=== PATIENT | male | born 1935 | race Caucasian/White ===

== ENCOUNTER 2018-04-17 11:05 | Day surgery (SDC) | payer MEDICARE ==
[2018-04-17] MEDS ORDERED: Buffered Lidocaine 0.9% SYRIN* 5 ML/SYR SYRINGE INTRADERM ONE (11:13)
[2018-04-17] MEDS ORDERED: Neomycin/Polymy/Dex OPHTH.OIN* 3.5 GM ONE (12:24)
[2018-04-17] MEDS ORDERED: Tetracaine 0.5% OPTH.SOL 4 ML* 1 DROP BTL ONE (12:24)
[2018-04-17] MEDS ORDERED: Cyclopentolate 1% OPTH.SOL* 2 ML BTL ONE (12:24)
[2018-04-17] MEDS ORDERED: Lidocaine 1%* 5 ML VIAL ONE (12:24)
[2018-04-17] MEDS ORDERED: Phenylephrine 2.5% OPTH.SOL* 2 ML BTL ONE (12:24)
[2018-04-17] MEDS ORDERED: Ketorolac 0.5% OPHTH (NF) 0.5 % 5 ML BTL ONE (12:24)
[2018-04-17] MEDS ORDERED: Tropicamide 1% OPTH.SOL* BTL ONE (12:24)
[2018-04-17] MEDS ORDERED: Midazolam* 1 MG/ML 5 ML VIAL (5 MG) ONE (13:07)
[2018-04-17 14:34] VITALS: BP 132/69
[2018-04-18] MEDS ORDERED: Acetaminophen TAB* 325 MG PO PRN (05:00)
--- NOTE | 2018-04-18 10:01 | OP ---
DATE OF OPERATION: 04/17/18 [facility] DATE OF : 37 SURGEON: Dr. Marc Figueredo. TETRYL BOILING TUB OPERATOR: None. ANESTHESIA: Topical with intravenous sedation. PRE-OP DIAGNOSIS: Cataract, right eye. POST-OP DIAGNOSIS: Cataract, right eye. OPERATIVE PROCEDURE: Phacoemulsification and cataract extraction with posterior chamber intraocular lens implant, right eye. COMPLICATIONS: None. BLOOD LOSS: None. DESCRIPTION OF PROCEDURE: The patient was brought to the operating room and received a small amount of intravenous sedation. A drop of Tetracaine was placed in the right eye. The patient was prepped and draped in the usual sterile fashion for ophthalmic surgery and attention was directed to the right eye where a speculum was placed. A paracentesis was created at the 11 o'clock position and 0.1 cc of 1 percent preservative-free Lidocaine was injected into the anterior chamber followed by DisCoVisc. The eye was digitally stabilized while a 2.75 mm keratome was used to create a triplanar clear corneal incision at the 9 o'clock position. A continuous curvilinear capsulorrhexis was created with a cystotome and Utrata forceps. BSS on a cannula was used to hydrodissect the lens from the capsule. Phacoemulsification was performed in a divide-and- conquer technique to create four fragments which were removed. Residual cortical material was removed with irrigation and aspiration. DisCoVisc was used to inflate the capsular bag and an SN60AT AU00T0 21.5 diopter lens was folded and inserted into the capsular bag. DisCoVisc was removed using irrigation and aspiration. BSS on a cannula was used to hydrate the corneal stroma and seal the wound. At the end of the case the pupil was round and the lens was centered. The eye was of normal pressure and the wound was water tight. The speculum was removed and topical Maxitrol ointment was placed on the surface of the eye. The eye was closed, patched and shielded and the patient was sent to the recovery room in stable condition with post operative instructions and follow-up appointment given. [id number]/[facility] #: [id number] MTDD
== END 2018-04-17 14:51 | disposition home or self-care (01) ==
LOC: OREAST 11:05
PROVIDERS: ATTEND Ophthalmology
DX: H25.041 Posterior subcapsular polar age-related cataract, right eye (principal); E78.5 Hyperlipidemia, unspecified; Z87.891 Personal history of nicotine dependence; Z86.711 Personal history of pulmonary embolism; E11.9 Type 2 diabetes mellitus without complications; K21.9 Gastro-esophageal reflux disease without esophagitis
CPT/HCPCS: A9270-GY; J2250; V2632

== ENCOUNTER 2018-04-24 08:29 | Day surgery (SDC) | payer MEDICARE ==
[~2018-04-24 08:29] MED LIST: Phenylephr/Ketorolac 1%/0.3% OPH DROP BTL LEFT EYE SCH
[2018-04-24] MEDS ORDERED: fentaNYL* 50 MCG/ML 2 ML VIAL (100 MCG VIAL) ONE (09:13)
[2018-04-24 10:18] VITALS: BP 101/62
--- NOTE | 2018-04-24 13:03 | OP ---
DATE OF OPERATION: 04/24/18 - [facility] DATE OF : 36 SURGEON: Marc Figueredo MD ESTATE TAX EXAMINER: None. ANESTHESIA: Topical with intravenous sedation. PRE-OP DIAGNOSIS: Cataract and small pupil, left eye. POST-OP DIAGNOSIS: Cataract and small pupil, left eye. OPERATIVE PROCEDURE: Phacoemulsification and cataract extraction with posterior chamber intraocular lens implant, left eye. COMPLICATIONS: None. BLOOD LOSS: None. DESCRIPTION OF PROCEDURE: The patient was brought to the operating room and given intravenous sedation. A drop of Tetracaine was placed in his left eye. The patient was prepped and draped in the usual sterile fashion for ophthalmic surgery and attention was directed to the left eye where a speculum was placed. It was noted that the pupil measured approximately 4 mm despite preoperative dilating drops. A paracentesis was created at the 5 o'clock position and 0.1 cc of 1% preservative-free lidocaine was introduced into the anterior chamber followed by DisCoVisc. A triplanar clear corneal incision was created at the 3 o'clock position using a 2.75 mm keratome while the eye was digitally stabilized. Despite DisCoVisc in the eye, the pupil did not dilate significantly. A continuous curvilinear capsulorrhexis measuring approximately 5 mm was created with a cystotome and Utrata forceps. Omidria was added to the irrigating solution. Phacoemulsification was performed in a opvzyn-hzv-gaipswm technique to create 4 fragments which were removed. It was noted that the pupil became smaller during the surgery and visibility decreased. Thus, viscoelastic was placed into the anterior chamber and a Malyugin ring was introduced into the eye. Residual cortical material was removed with irrigation and aspiration. DisCoVisc was used to inflate the capsular bag. An AU00T0 21.0 diopter lens was inserted into the capsular bag. The Malyugin ring was removed atraumatically. Viscoelastic was removed from the eye. BSS on a cannula was used to hydrate the corneal stroma and seal the wound. At the end of the case, the pupil was round and the lens was centered. The eye pressure appeared normal and the wound was water tight. The speculum was removed and topical Maxitrol ointment was placed on the surface of the eye. The eye was closed, patched and shielded and the patient was sent to the recovery room in stable condition with postoperative instructions and followup appointment given. [id number]/[facility] #: [id number] LIVAN
[2018-04-24] MEDS ORDERED: Cyclopentolate 1% OPTH.SOL* 2 ML BTL ONE (16:12)
[2018-04-24] MEDS ORDERED: Tetracaine 0.5% OPTH.SOL 4 ML* 1 DROP BTL ONE (16:12)
[2018-04-24] MEDS ORDERED: Neomycin/Polymy/Dex OPHTH.OIN* 3.5 GM ONE (16:12)
[2018-04-24] MEDS ORDERED: Lidocaine 1%* 5 ML VIAL ONE (16:12)
[2018-04-24] MEDS ORDERED: Ketorolac 0.5% OPHTH (NF) 0.5 % 5 ML BTL ONE (16:12)
[2018-04-24] MEDS ORDERED: Phenylephrine 2.5% OPTH.SOL* 2 ML BTL ONE (16:12)
[2018-04-24] MEDS ORDERED: Tropicamide 1% OPTH.SOL* BTL ONE (16:12)
== END 2018-04-24 10:34 | disposition home or self-care (01) ==
LOC: OREAST 08:29
PROVIDERS: ATTEND Ophthalmology
DX: H25.12 Age-related nuclear cataract, left eye (principal); H21.562 Pupillary abnormality, left eye; Z87.891 Personal history of nicotine dependence; E78.5 Hyperlipidemia, unspecified; E11.9 Type 2 diabetes mellitus without complications; K21.9 Gastro-esophageal reflux disease without esophagitis; Z86.711 Personal history of pulmonary embolism
CPT/HCPCS: A9270-GY; C9447; J3010; V2632

== ENCOUNTER 2018-06-18 16:44 | Inpatient (IN) | payer MEDICARE ==
[~2018-06-18 16:44] MED LIST changes: +Etomidate* 2 MG/ML 20 ML VIAL (40 MG) ONE; -Phenylephr/Ketorolac 1%/0.3% OPH DROP BTL LEFT EYE SCH
[2018-06-18] MEDS ORDERED: fentaNYL* 50 MCG/ML 2 ML VIAL (100 MCG VIAL) ONE (16:48)
[2018-06-18] MEDS ORDERED: Etomidate* 2 MG/ML 10 ML VIAL IV ONE (17:04)
[2018-06-18] MEDS ORDERED: fentaNYL* 50 MCG/ML 2 ML VIAL (100 MCG VIAL) IV SLOW PU ONE (17:04)
[2018-06-18] MEDS ORDERED: NS 0.9% 1000 ML* 1,000 ML IV ONE ×3 (17:04→21:49)
--- NOTE | 2018-06-18 17:04 | ED ---
Shortness of Breath - HPI Summary HPI Summary: An 83 y/o male brought in by [facility] ambulance presents to [facility] with a chief complaint SOB on 06/18/18. Per EMS the patient was dizzy and hit his head on the table. They found the patient laying on the floor. When he was sit up he felt SOB. When he tried to stand the patient went pale. EMS called in at 16:26 and were concerned for a possible STEMI stating that some rhythm strips showed STEMI and some did not. Dr. Stephens was at bedside upon arrival at 16:35. His last BP in the ambulance was 72/40. The patient appears diaphoretic. The patient reports taking Omeprazole, Flomax and a recently decreased dose of Prozac. The patient denies a Hx of COPD or PNA. The patient denies current diarrhea, Fever, Chills, Erythema (eyes), Sore throat, Chest pain, Cough, Abdominal pain, Vomiting, Nausea,Dysuria, Hematuria, Myalgia, Edema, Rash and Dizziness. He admits to daily EtOH use, usually drinking 2-3 glasses of wine, but he reports not drinking today. - History of Current Complaint Hx Obtained From: Patient, EMS Onset/Duration: Sudden Onset, Lasting Minutes, Still Present Current Severity: Severe Associated Signs & Symptoms: Negative - cough, CP, Dizzy - Allergy/Home Medications Allergies/Adverse Reactions: Allergies Allergy/AdvReac Type Severity Reaction Status Date / Time No Known Allergies Allergy Verified 04/24/18 08:48 Home Medications: Home Medications Aspirin TAB* [Aspirin 325 MG TAB*] 325 mg PO DAILY 06/18/18 [History Confirmed 06/18/18] Finasteride TAB* [Proscar TAB*] 5 mg PO DAILY 06/18/18 [History Confirmed ] Multivitamins/Minerals TAB* [Theragran/minerals TAB*] 1 tab PO DAILY 06/18/18 [ History Confirmed 06/18/18] Olopatadine 0.2% (NF) [Pataday 0.2% (NF)] 1 drop BOTH EYES QAM 06/18/18 [ History Confirmed 06/18/18] Sertraline* [Zoloft*] 12.5 mg PO DAILY 06/18/18 [History Confirmed 06/18/18] PMH/Surg Hx/FS Hx/Imm Hx Endocrine/Hematology History: Reports: Hx Diabetes - type 2 Cardiovascular History: Denies: Other Cardiovascular Problems/Disorders Respiratory History: Denies: Hx Chronic Obstructive Pulmonary Disease (COPD), Other Respiratory Problems/Disorders GI History: Denies: Other GI Disorders Musculoskeletal History: Reports: Other Musculoskeletal History - spinal stenosis Sensory History: Reports: Hx Cataracts - jia, Hx Contacts or Glasses - glasses Denies: Hx Hearing Aid - left Opthamlomology History: Reports: Hx Cataracts - jia, Hx Contacts or Glasses - glasses Neurological History: Denies: Other Neuro Impairments/Disorders - Surgical History Surgery Procedure, Year, and Place: appendectomy. tonsilectomy Hx Anesthesia Reactions: No - Family History Known Family History: Negative: Blood Disorder - Social History Alcohol Use: Daily Alcohol Amount: 10 oz per day Substance Use Type: Reports: None Smoking Status (MU): Never Smoked Tobacco Have You Smoked in the Last Year: Yes Review of Systems Negative: Fever, Chills Negative: Erythema Negative: Sore Throat Negative: Chest Pain Positive: Shortness Of Breath. Negative: Cough Negative: Abdominal Pain, Vomiting, Diarrhea, Nausea Negative: dysuria, hematuria Negative: Myalgia, Edema Negative: Rash Neurological: Negative - dizziness All Other Systems Reviewed And Are Negative: Yes Physical Exam - Summary Physical Exam Summary: Constitutional: Well-developed, Well-nourished, Alert. (-) Distressed Skin: Warm, Dry HENT: Normocephalic; Atraumatic Eyes: Conjunctiva normal Neck: Musculoskeletal ROM normal neck. (-) JVD, (-) Stridor, (-) Tracheal deviation Cardio: Rhythm regular, rate normal, Heart sounds normal; Intact distal pulses; The pedal pulses are 2+ and symmetric. Radial pulses are 2+ and symmetric. (-) Murmur Pulmonary/Chest wall: (+) Mild crackled left lower lung field (-) Respiratory distress, (-) Wheezes, (-) Rales Abd: Soft, (-) epigastric tenderness, (-) Distension, (-) Guarding, (-) Rebound Musculoskeletal: (-) Edema Lymph: (-) Cervical adenopathy Neuro: Alert, Oriented x3 Psych: Mood and affect Normal GCS: 15 Triage Information Reviewed: Yes Vital Signs Reviewed: Yes Diagnostics - Laboratory Result Diagrams: 06/18/18 16:58 06/18/18 16:58 Lab Statement: Any lab studies that have been ordered have been reviewed, and results considered in the medical decision making process. - Radiology CXR Radiology Interpretation Completed By: Radiologist Summary of Radiographic Findings: No active cardiopulmonary disease is noted. ED physician has reviewed this imaging report. - CT Brain CT Interpretation Completed By: Radiologist Summary of CT Findings: No acute intracranial abnormality. Chronic microvascular ischemic changes. ED physician has reviewed this imaging report. - EKG 16:40 Cardiac Rate: Tachycardia - 151 bpm EKG Rhythm: Sinus Tachycardia Summary of EKG Findings: Wide complex, tachycardic, no STEMI 16:52 Cardiac Rate: Tachycardia - 115 bpm EKG Rhythm: Sinus Tachycardia Summary of EKG Findings: no STEMI. 17:01 Cardiac Rate: NL - 111 bpm EKG Rhythm: Sinus Rhythm Summary of EKG Findings: NSR, no STEMI Course/Dx - Course Course Of Treatment: An 83 y/o male brought in by [facility] ambulance presents to [facility] with a chief complaint SOB on 06/18/18. Per EMS the patient was dizzy and hit his head on the table. They found the patient laying on the floor. When he was sit up he felt SOB. When he tried to stand the patient went pale. EMS called in at 16:26 and were concerned for a possible STEMI stating that some rhythm strips showed STEMI and some did not. Dr. Stephens was at bedside upon arrival at 16:35. His last BP in the ambulance was 72/40. The patient appears diaphoretic. The patient reports taking Omeprazole, Flomax and a recently decreased dose of Prozac. The patient denies a Hx of COPD or PNA. The patient denies current diarrhea, Fever, Chills, Erythema (eyes), Sore throat, Chest pain , Cough, Abdominal pain, Vomiting, Nausea,Dysuria, Hematuria, Myalgia, Edema, Rash and Dizziness. He admits to daily EtOH use, usually drinking 2-3 glasses of wine, but he reports not drinking today. The patient arrived diaphoretic with SOB and systolic of 70. He was wide complex tachyfardic with irregular pulses. He received emergency procedural sedation and synchronized cardioversion. BP improved to 110 systolic from 70 and the patient went back to NSR. He did require bag valve mask for respiratory depression exacerbated by his poor hemodynamic state. Consent was emergent. His PE revealed mild crackles in the left lower lung field. CXR impression: No active cardiopulmonary disease is noted. Brain CT impression: No acute intracranial abnormality. Chronic microvascular ischemic changes. Patient was given fenanyl IV in the ED course. Lab results obtained troponin 0.08. lactic acid 2.8. Dr. Rodriguez and Dr. Delgado saw the patient in the ED. Dr. Rodriguez will accept the patient for admission. - Diagnoses Provider Diagnoses: Syncope, Hypoxia - Physician Notifications Discussed Care of Patient With: Don Rodriguez Time Discussed With Above Provider: 17:05 Instructed by Provider To: MD Will See In ED - After Dr. Rodriguez saw the patient in the ED at 18:35: confirmed lab results. He is aware of the plan for hydration. He accepted the pt for admission. I ensured the lab ran a ddimer on a stat basis which is high. Pt is being heperinized, ordered a CT. If PE is presents Dr. Rodriguez will order thrombolytics. Discharge - Sign-Out/Discharge Documenting (check all that apply): Patient Departure - Admit - Discharge Plan Condition: Fair Disposition: ADMITTED TO [facility] - Attestation Statements Document Initiated by Scribe: Yes Documenting Scribe: Abram Wilkes Provider For Whom Scribe is Documenting (Include Credential): Ozzie Stephens MD Scribe Attestation: Abram Reese, scribed for Ozzie Stephens MD on 06/18/18 at 9011. Consult Consult: At 17:[address] Delgado who will come see the patient in the ED.
[2018-06-18 17:19] LABS: ABS Basophils 0.1 10^3/ul (0-0.2); ABS Eosinophils 0.1 10^3/ul (0-0.6); ABS Monocytes 0.6 10^3/ul (0-0.8); ABS Neutrophils 10.8 10^3/ul (1.5-7.7); ABS Nucleated RBC 0 10^3/ul; Eosinophil % 0.6 %; Hematocrit 45 % (42-52); Hemoglobin 14.6 g/dl (14.0-18.0); Lymphocyte % 8.1 %; Mean Corpuscular HGB Conc 33 g/dl (31-36); Mean Corpuscular Hemoglobin 33 pg (27-31); Mean Corpuscular Volume 102 fL (80-94); Mean Platelet Volume 7.8 fL (7.4-10.4); Nucleated Red Blood Cells % 0; Platelet Count 152 10^3/ul (150-450); Red Blood Count 4.39 10^6/ul (4.00-5.40); Red Cell Distribution Width 13 % (10.5-15); White Blood Count 12.6 10^3/ul (3.5-10.8)
[2018-06-18] MEDS ORDERED: Azithromycin IV(*) 500 MG in NS 0.9% 250 ML* 250 ML IVPB ONE (17:24)
[2018-06-18] MEDS ORDERED: cefTRIAXone(*) 1 GM in NS 0.9% 50 ML* 50 ML IVPB ONE (17:24)
[2018-06-18 17:36] LABS: EGFR Non-African American 41.3 (>60)
[2018-06-18] MEDS ORDERED: Metoprolol Tartrate IV* 1 MG/ML 5 ML VIAL IV PRN (18:17)
--- NOTE | 2018-06-18 18:17 | HP ---
H&P (Free Text) History and Physical: History and Physical -- Critical Care Limitations in history/physical: none HPI: 83y M w/pmhx of GERD, HLD, depression; comes to ER after he felt dizzy at 3pm, tried to get to bed and fell and hit his head. He states he felt worse after and sob, then called EMS. Denies syncope/cp. EMS noted tachycardia, given adenosine IV with minimal improvement. In ER he was found hypotensive 70s, with a wide complex tachycardia on EKG. He was cardioverted to NSR, given IVF bolus with improving BPs. Post EKG demonstrated NSR with RBBB pattern and inferior Qwaves+. He denies any significant cardiac history. No prior episodes of chest pain/syncope. States he does get short of breath on walking for months now, has to stop at top of stairs. Denies LE swelling. In ER, cardiology performed bedside ECHO, no noticeable significant decline in cardiac function, no effusion. ROS: negative except for pertinent positives mentioned above. PMHx: GERD, HLD, depression PSHx: None Family History: Clots in legs in father/brother/sister; DM but not sure in who. Social History: Alcohol-use to drink 16oz hard liquor but stopped 1 month back, now 2-3 glasses wine daily; Smoking-active smoker for 40+ years, Drug use-none Allergies: NKDA Home Medications: Omeprazole CAP* [Prilosec CAP* 20 MG] 20 mg PO QAM 04/16/18 [History Confirmed 06/18/18] Tamsulosin CAP* [Flomax CAP*] 0.8 mg PO QAM 04/16/18 [History Confirmed 06/18/18 ] Aspirin TAB* [Aspirin 325 MG TAB*] 325 mg PO DAILY 06/18/18 [History Confirmed 06/18/18] Finasteride TAB* [Proscar TAB*] 5 mg PO DAILY 06/18/18 [History Confirmed ] Multivitamins/Minerals TAB* [Theragran/minerals TAB*] 1 tab PO DAILY 06/18/18 [ History Confirmed 06/18/18] Olopatadine 0.2% (NF) [Pataday 0.2% (NF)] 1 drop BOTH EYES QAM 06/18/18 [ History Confirmed 06/18/18] Sertraline* [Zoloft*] 12.5 mg PO DAILY 06/18/18 [History Confirmed 06/18/18] Tele: NSR now Vitals: Vital Signs Temp 97.1 F 06/18/18 16:45 Pulse 111 06/18/18 17:23 Resp 16 06/18/18 17:23 BP 92/72 06/18/18 16:45 Pulse Ox 92 06/18/18 17:23 Intake & Output 06/17/18 06/18/18 06/18/18 18:59 06:59 18:59 Weight 97.522 kg O2/Vent: NC Infusions: heplock Current Medications: Sodium Chloride (Ns 0.9% 1000 Ml*) 1,000 mls @ 1,000 mls/hr IV .PER RATE ONE Stop: 06/18/18 18:03 Azithromycin 500 mg/ Sodium (Chloride) 250 mls @ 250 mls/hr IVPB ED ONCE ONE Stop: 06/18/18 18:23 Physical Exam: General: awake, alert, no distress, no diaphoresis Head: Left frontal small wound open, nonbleeding, no hematoma HEENT: no pallor, no icterus, moist mucous membranes Neck: soft, supple, no jvd, no stridor CVS: normal rate, regular, no murmur Resp: bilateral air entry, no rhales/wheeze/rhonchi, no acc muscle use Abdomen: soft, nontender, nondistended, bowel sounds present Ext: pulses+, warm, no edema Skin: intact Neuro: awake, alert, orientedx3, moving all extremities, no gross focal deficit Labs: Laboratory Results - last 24 hr 06/18/18 06/18/18 06/18/18 16:58 16:58 16:58 WBC 12.6 H RBC 4.39 Hgb 14.6 Hct 45 MCV 102 H MCH 33 H MCHC 33 RDW 13 Plt Count 152 MPV 7.8 Neut % (Auto) 85.6 Lymph % (Auto) 8.1 Nye % (Auto) 5.1 Eos % (Auto) 0.6 Baso % (Auto) 0.6 Absolute Neuts (auto) 10.8 H Absolute Lymphs (auto) 1.0 Absolute Monos (auto) 0.6 Absolute Eos (auto) 0.1 Absolute Basos (auto) 0.1 Absolute Nucleated RBC 0 Nucleated RBC % 0 Sodium 137 Potassium 4.0 Chloride 101 Carbon Dioxide 20 L Anion Gap 16 H BUN 23 Creatinine 1.61 H Est GFR ( Amer) 50.0 Est GFR (Non-Af Amer) 41.3 BUN/Creatinine Ratio 14.3 Glucose 388 H Lactic Acid 6.8 H* Calcium 9.1 Total Bilirubin 0.60 AST 42 H ALT 42 Alkaline Phosphatase 103 Troponin I 0.08 H* Total Protein 5.9 L Albumin 3.7 Globulin 2.2 Albumin/Globulin Ratio 1.7 Imaging: cxr 06/18 - no active disease noted CT brain 06/18 pending Assessment: 83y M w/pmhx of GERD, HLD, depression; comes to ER after he felt dizzy at 3pm, tried to get to bed and fell and hit his head. He states he felt worse after and sob, then called EMS. Denies syncope/cp. EMS noted tachycardia, given adenosine IV with minimal improvement. In ER he was found hypotensive 70s , with a wide complex tachycardia on EKG. He was cardioverted to NSR, given IVF bolus with improving BPs. Post EKG demonstrated NSR with RBBB pattern and inferior Qwaves+. -Unstable VT, s/p cardioversion -Renal insufficiency -Lactic Acidosis -Hyperglycemia -s/p fall with left frontal trauma Plan: Neuro- awake/alert. will restart prozac after dose obtained. delirium prec. asp prec. -CT head/brain pending for left frontal trauma CVS- unstable tachycardia, wide complex. seems EMS strips showed tachycardic but RBBB pattern. In ER, he had sinus rhythm with episodes of wide complex tachycardia runs also. s/p cardioversion, rhythm, NSR and BP improved. will cont NS 50cc/hr. TTE in AM. No antiarrythmics given. Likely troponin will rise, cont to trend q4h. EKG q6h. trend LA, CPK, troponin. No amio at this time. start metoprolol 12.5mg po bid. start asa 81mg daily. -given history of SOB, may be underlying lung disease from chronic smoking, but may need stress test to r/o CAD. Resp- on 2L NC, no distress now. CXR clear of congestion/infiltrates. Use levoalbuterol if any wheezing/sob. Given smoking history will need PFTs done later to eval chronic dyspnea on exertion. ID- wbc 12. afebrile. LA 6. Likely from hypoperfusion. No clear infectious source. CXR clear. check urinalysis. low suspicioin for sepsis. given ceftriaxone/azithro. hold furhter IV abx for now. GI- start cardiac diet. PPI for GERD. Renal- Renal insuff, CR 1.6. Acute vs chronic. may be component of hypoperfusion from unstable tachycardia. IVF bolus given. Start NS 50cc/hr. monitor i/o. Mild acidosis likely from LA production + renal insuff. Heme- hg okay. plt ok. DVT proph SCD/heparin sq. Endo- elevated BG. check hba1c. fingerstick achs. check tsh. Musculsk- pressure ulcer prophylaxis. Bedrest. Wounds- none Nutrition- cardiac diet DVT prophylaxis: SCD/heparin sq GI prophylaxis: ppi Central Line: no Arterial Line: no Stack Cathetor: no Disposition: admit to ICU, expected LOS>2 midnights Code Status: full code Total Critical Care time is 40 minutes, excluding procedures/teaching Don Rodriguez MD Survey Analyst (Electronically Signed)
[2018-06-18] MEDS ORDERED: Heparin DRIP 25,000 UNITS(*) 25,000 UNITS/500 ML BAG IV SCH (20:15)
[2018-06-18] MEDS ORDERED: Metoprolol Tartrate TAB* 25 MG PO SCH (21:00)
[2018-06-18] MEDS ORDERED: Dextrose 50% Syringe 50 ML* 25 GM/50 ML SYRINGE IV PUSH PRN (21:08)
[2018-06-18] MEDS: Insulin LISPRO* 1 UNITS UNIT SUBCUT SCH (21:22)
[2018-06-18 21:50] LABS: INR 1.06 (0.77-1.02)
[2018-06-18] MEDS ORDERED: Heparin VIAL(*) 5000 UNITS/ML VIAL (FIVE THOUSAND) SUBCUT SCH (22:00)
[2018-06-18 22:06] LABS: EGFR Non-African American 45.9 (>60)
--- NOTE | 2018-06-18 22:07 | PN ---
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 THis history with his family history of clots, now with elevated d-dimer, RBBB, chronic SOB for months, with with syncope/tachycardia, all point to a high suspicion of PE. He has a stable BP now, LA trending down. awake, alert. Hold IV heparin bolus/infusion; discussed with patient and will obtain CTA chest for r/o PE. V/Q not available now discussed possibility of tpa and need for CTA though he has some renal insuff. he agrees if need is high. will proceed to CTA chest now Don Rodriguez Director Shopper Marketing
[2018-06-18] MEDS ORDERED: Iodixanol* (CONTRAST) 320 MG/ML 100 ML SDV IV ONE (23:13)
[2018-06-18] MEDS ORDERED: Magnesium Sulfate IV* 2 GM in NS 0.9% 100 ML* 100 ML IV ONE (23:35)
[2018-06-18] MEDS: NS 0.9% 1000 ML* 1,000 ML IV SCH (23:49)
[2018-06-19] MEDS ORDERED: Alteplase* 100 MG VIAL IV ONE (00:06)
[2018-06-19] MEDS ORDERED: ALTEPLASE IVPB ONE (00:30)
[2018-06-19] MEDS ORDERED: NS 0.9% IVPB ONE (00:30)
[2018-06-19] MEDS ORDERED: Magnesium Sulfate 2 GM IV* 2 GM/50 ML BAG ONE (01:04)
[2018-06-19 04:21] LABS: Hematocrit 42 % (42-52); Hemoglobin 13.8 g/dl (14.0-18.0); Mean Corpuscular HGB Conc 33 g/dl (31-36); Mean Corpuscular Hemoglobin 33 pg (27-31); Mean Corpuscular Volume 100 fL (80-94); Mean Platelet Volume 7.3 fL (7.4-10.4); Platelet Count 125 10^3/ul (150-450); Red Blood Count 4.15 10^6/ul (4.00-5.40); Red Cell Distribution Width 13 % (10.5-15); White Blood Count 9.3 10^3/ul (3.5-10.8)
[2018-06-19 04:36] LABS: EGFR Non-African American 50.6 (>60)
[2018-06-19] MEDS ORDERED: Heparin DRIP 25,000 UNITS(*) 25,000 UNITS/500 ML BAG IV SCH (06:30)
[2018-06-19 07:59] LABS: Hematocrit 42 % (42-52); Hemoglobin 13.9 g/dl (14.0-18.0); Mean Corpuscular HGB Conc 33 g/dl (31-36); Mean Corpuscular Hemoglobin 33 pg (27-31); Mean Corpuscular Volume 101 fL (80-94); Mean Platelet Volume 7.3 fL (7.4-10.4); Platelet Count 131 10^3/ul (150-450); Red Blood Count 4.21 10^6/ul (4.00-5.40); Red Cell Distribution Width 13 % (10.5-15); White Blood Count 9.4 10^3/ul (3.5-10.8)
[2018-06-19] MEDS ORDERED: Insulin LISPRO* 1 UNITS UNIT SUBCUT SCH (08:00)
[2018-06-19 08:01] LABS: ABS Basophils 0.1 10^3/ul (0-0.2); ABS Eosinophils 0.1 10^3/ul (0-0.6); ABS Lymphocytes 1.4 10^3/ul (1.0-4.8); ABS Monocytes 0.6 10^3/ul (0-0.8); ABS Neutrophils 7.1 10^3/ul (1.5-7.7); ABS Nucleated RBC 0 10^3/ul; Eosinophil % 0.9 %; Lymphocyte % 14.9 %; Nucleated Red Blood Cells % 0
[2018-06-19] MEDS: Heparin DRIP 25,000 UNITS(*) 25,000 UNITS/500 ML BAG IV SCH (08:06)
[2018-06-19 08:15] LABS: EGFR Non-African American 52.9 (>60)
[2018-06-19] MEDS: Insulin LISPRO* 1 UNITS UNIT SUBCUT SCH ×4 (09:06→19:58)
[2018-06-19] MEDS: Tamsulosin CAP* 0.4 MG PO SCH (09:57)
[2018-06-19] MEDS: Omeprazole CAP* 20 MG PO SCH (09:57)
[2018-06-19] MEDS: Aspirin 81 mg CHEW TAB* 81 MG TAB.CHEW PO SCH (09:57)
--- NOTE | 2018-06-19 12:09 | PN ---
Progress Note - Progress Note Date of Service: 06/19/18 Note: Progress Note -- Critical Care 24 hour events: -admitted yesterday; found to have Right mainstem PE, labile BP; given 1/2 dose tpa -BP stable this morning, 2-4L NC, no resp distress -IV heparin started 8am -no bleeding, no mental status change; awake. alert. -afebrile Tele: NSR Vitals: Vital Signs Temp 98.3 F 06/19/18 08:09 Pulse 71 06/19/18 10:01 Resp 19 06/19/18 10:01 BP 119/74 06/19/18 10:01 Pulse Ox 94 06/19/18 10:01 Intake & Output 06/18/18 06/19/18 06/19/18 18:59 06:59 18:59 Intake Total 1999 2963 240 Output Total 150 0 Balance 1999 2813 240 Weight 97.522 kg 100.4 kg Intake: IV Fluids 1999 2853 NS (0.9%) 2443 IVPB 60 Magnesium 60 Medicated IV 50 TPA 50 Oral 0 240 Output: Urine 150 0 Stack 0 O2/Vent: NC 4L Infusions: IV heparin Current Medications: Aspirin (Aspirin 81 Mg Chew Tab*) 81 mg PO DAILY [facility] Last Admin: 06/19/18 09:57 Dose: 81 mg Dextrose (D50w Syringe 50 Ml*) 12.5 gm IV PUSH .FOR FS < 60 - SS PRN PRN Reason: FS < 60 Sodium Chloride (Ns 0.9% 1000 Ml*) 1,000 mls @ 75 mls/hr IV .PER RATE [facility] Last Admin: 06/18/18 23:49 Dose: 75 mls/hr Heparin Sodium/Dextrose (Heparin Drip 25,000 Units(*)) 25,000 units in 500 mls @ 0 mls/hr IV PER RATE [facility]; Protocol Last Admin: 06/19/18 08:06 Dose: 20 mls/hr Insulin Human Lispro (Humalog*) 0 units SUBCUT FS ACHS ICU ECHO; Protocol Last Admin: 06/19/18 09:06 Dose: Not Given Metoprolol Tartrate (Lopressor Iv*) 5 mg IV Q6H PRN PRN Reason: for tachycardia >140 Omeprazole (Prilosec Cap*) 20 mg PO QAM ECHO Last Admin: 06/19/18 09:57 Dose: 20 mg Tamsulosin HCl (Flomax Cap*) [facility] Admin: 06/19/18 09:57 Dose: 0.8 mg Physical Exam: General: awake, alert, no distress, no diaphoresis Head: Left frontal small wound open, nonbleeding, no hematoma HEENT: no pallor, no icterus, moist mucous membranes Neck: soft, supple, no jvd, no stridor CVS: normal rate, regular, no murmur Resp: bilateral air entry, no rhales/wheeze/rhonchi, no acc muscle use Abdomen: soft, nontender, nondistended, bowel sounds present Ext: pulses+, warm, no edema Skin: intact Neuro: awake, alert, orientedx3, moving all extremities, no gross focal deficit Labs: Laboratory Results - last 24 hr 06/18/18 06/18/18 06/18/18 16:58 16:58 16:58 WBC 12.6 H RBC 4.39 Hgb 14.6 Hct 45 MCV 102 H MCH 33 H MCHC 33 RDW 13 Plt Count 152 MPV 7.8 Neut % (Auto) 85.6 Lymph % (Auto) 8.1 Churchill % (Auto) 5.1 Eos % (Auto) 0.6 Baso % (Auto) 0.6 Absolute Neuts (auto) 10.8 H Absolute Lymphs (auto) 1.0 Absolute Monos (auto) 0.6 Absolute Eos (auto) 0.1 Absolute Basos (auto) 0.1 Absolute Nucleated RBC 0 Nucleated RBC % 0 INR (Anticoag Therapy) APTT Fibrinogen D-Dimer, Quantitative Patient Temperature ABG pH ABG pH (Temp Correct) ABG pCO2 ABG pCO2 (Temp Corrct ABG pO2 ABG pO2 (Temp Correct ABG HCO3 ABG O2 Saturation ABG Base Excess VBG pH VBG pCO2 VBG pO2 VBG HCO3 VBG O2 Saturation VBG Base Excess Respiration Rate O2 Delivery Device Ventilator Type Vent Mode FiO2 Inspiratory Time PEEP Pressure Support Pressure Control EPAP IPAP BiPAP Sodium 137 Potassium 4.0 Chloride 101 Carbon Dioxide 20 L Anion Gap 16 H BUN 23 Creatinine 1.61 H Est GFR ( Amer) 50.0 Est GFR (Non-Af Amer) 41.3 BUN/Creatinine Ratio 14.3 Glucose 388 H POC Glucose (mg/dL) Hemoglobin A1c Lactic Acid 6.8 H* Calcium 9.1 Phosphorus Magnesium Total Bilirubin 0.60 AST 42 H ALT 42 Alkaline Phosphatase 103 Total Creatine Kinase Troponin I 0.08 H* B-Natriuretic Peptide Total Protein 5.9 L Albumin 3.7 Globulin 2.2 Albumin/Globulin Ratio 1.7 Triglycerides Cholesterol LDL Cholesterol HDL Cholesterol Procalcitonin TSH 06/18/18 06/18/18 06/18/18 16:58 18:56 21:03 WBC RBC Hgb Hct MCV MCH MCHC RDW Plt Count MPV Neut % (Auto) Lymph % (Auto) Churchill % (Auto) Eos % (Auto) Baso % (Auto) Absolute Neuts (auto) Absolute Lymphs (auto) Absolute Monos (auto) Absolute Eos (auto) Absolute Basos (auto) Absolute Nucleated RBC Nucleated RBC % INR (Anticoag Therapy) APTT Fibrinogen D-Dimer, Quantitative > 1050 H Patient Temperature ABG pH ABG pH (Temp Correct) ABG pCO2 ABG pCO2 (Temp Corrct ABG pO2 ABG pO2 (Temp Correct ABG HCO3 ABG O2 Saturation ABG Base Excess VBG pH 7.21 L VBG pCO2 55 H VBG pO2 29 L VBG HCO3 18.0 L VBG O2 Saturation 45.5 L VBG Base Excess -6.7 L Respiration Rate O2 Delivery Device Ventilator Type Vent Mode FiO2 Inspiratory Time PEEP Pressure Support Pressure Control EPAP IPAP BiPAP Sodium Potassium Chloride Carbon Dioxide Anion Gap BUN Creatinine Est GFR ( Amer) Est GFR (Non-Af Amer) BUN/Creatinine Ratio Glucose POC Glucose (mg/dL) Hemoglobin A1c Lactic Acid Calcium Phosphorus Magnesium Total Bilirubin AST ALT Alkaline Phosphatase Total Creatine Kinase Troponin I B-Natriuretic Peptide 93 Total Protein Albumin Globulin Albumin/Globulin Ratio Triglycerides Cholesterol LDL Cholesterol HDL Cholesterol Procalcitonin TSH 06/18/18 06/18/18 06/18/18 21:03 21:03 21:03 WBC RBC Hgb Hct MCV MCH MCHC RDW Plt Count MPV Neut % (Auto) Lymph % (Auto) Churchill % (Auto) Eos % (Auto) Baso % (Auto) Absolute Neuts (auto) Absolute Lymphs (auto) Absolute Monos (auto) Absolute Eos (auto) Absolute Basos (auto) Absolute Nucleated RBC Nucleated RBC % INR (Anticoag Therapy) 1.06 H APTT 29.7 Fibrinogen 205.7 D-Dimer, Quantitative Patient Temperature ABG pH ABG pH (Temp Correct) ABG pCO2 ABG pCO2 (Temp Corrct ABG pO2 ABG pO2 (Temp Correct ABG HCO3 ABG O2 Saturation ABG Base Excess VBG pH VBG pCO2 VBG pO2 VBG HCO3 VBG O2 Saturation VBG Base Excess Respiration Rate O2 Delivery Device Ventilator Type Vent Mode FiO2 Inspiratory Time PEEP Pressure Support Pressure Control EPAP IPAP BiPAP Sodium 137 Potassium 5.0 Chloride 106 Carbon Dioxide 23 Anion Gap 8 BUN 24 Creatinine 1.47 H Est GFR ( Amer) 55.5 Est GFR (Non-Af Amer) 45.9 BUN/Creatinine Ratio 16.3 Glucose 350 H POC Glucose (mg/dL) Hemoglobin A1c 8.2 H Lactic Acid Calcium 8.3 L Phosphorus Magnesium 1.5 L Total Bilirubin AST ALT Alkaline Phosphatase Total Creatine Kinase 89 Troponin I 0.38 H* B-Natriuretic Peptide Total Protein Albumin Globulin Albumin/Globulin Ratio Triglycerides 169 Cholesterol 160 LDL Cholesterol 92 HDL Cholesterol 34.1 Procalcitonin TSH 0.71 06/18/18 06/18/18 06/18/18 21:03 21:03 21:06 WBC RBC Hgb Hct MCV MCH MCHC RDW Plt Count MPV Neut % (Auto) Lymph % (Auto) Churchill % (Auto) Eos % (Auto) Baso % (Auto) Absolute Neuts (auto) Absolute Lymphs (auto) Absolute Monos (auto) Absolute Eos (auto) Absolute Basos (auto) Absolute Nucleated RBC Nucleated RBC % INR (Anticoag Therapy) APTT Fibrinogen D-Dimer, Quantitative Patient Temperature ABG pH ABG pH (Temp Correct) ABG pCO2 ABG pCO2 (Temp Corrct ABG pO2 ABG pO2 (Temp Correct ABG HCO3 ABG O2 Saturation ABG Base Excess VBG pH VBG pCO2 VBG pO2 VBG HCO3 VBG O2 Saturation VBG Base Excess Respiration Rate O2 Delivery Device Ventilator Type Vent Mode FiO2 Inspiratory Time PEEP Pressure Support Pressure Control EPAP IPAP BiPAP Sodium Potassium Chloride Carbon Dioxide Anion Gap BUN Creatinine Est GFR ( Amer) Est GFR (Non-Af Amer) BUN/Creatinine Ratio Glucose POC Glucose (mg/dL) 339 H Hemoglobin A1c Lactic Acid 3.9 H* Calcium Phosphorus Magnesium Total Bilirubin AST ALT Alkaline Phosphatase Total Creatine Kinase Troponin I B-Natriuretic Peptide Total Protein Albumin Globulin Albumin/Globulin Ratio Triglycerides Cholesterol LDL Cholesterol HDL Cholesterol Procalcitonin < 0.1 TSH 06/18/18 06/19/18 06/19/18 21:19 04:00 04:00 WBC RBC Hgb Hct MCV MCH MCHC RDW Plt Count MPV Neut % (Auto) Lymph % (Auto) Churchill % (Auto) Eos % (Auto) Baso % (Auto) Absolute Neuts (auto) Absolute Lymphs (auto) Absolute Monos (auto) Absolute Eos (auto) Absolute Basos (auto) Absolute Nucleated RBC Nucleated RBC % INR (Anticoag Therapy) APTT Fibrinogen D-Dimer, Quantitative Patient Temperature Not Reportable ABG pH 7.31 L ABG pH (Temp Correct) Not Reportable ABG pCO2 37 ABG pCO2 (Temp Corrct Not Reportable ABG pO2 69 L ABG pO2 (Temp Correct Not Reportable ABG HCO3 19.3 ABG O2 Saturation 94.9 L ABG Base Excess -7.0 L VBG pH VBG pCO2 VBG pO2 VBG HCO3 VBG O2 Saturation VBG Base Excess Respiration Rate Not Reportable O2 Delivery Device 2 lpm oxymask Ventilator Type Not Reportable Vent Mode Not Reportable FiO2 Not Reportable Inspiratory Time Not Reportable PEEP Not Reportable Pressure Support Not Reportable Pressure Control Not Reportable EPAP Not Reportable IPAP Not Reportable BiPAP Not Reportable Sodium 139 Potassium 4.1 Chloride 110 Carbon Dioxide 23 Anion Gap 6 BUN 24 Creatinine 1.35 H Est GFR ( Amer) 61.2 Est GFR (Non-Af Amer) 50.6 BUN/Creatinine Ratio 17.8 Glucose 135 H POC Glucose (mg/dL) Hemoglobin A1c Lactic Acid 1.6 Calcium 8.1 L Phosphorus 3.2 Magnesium 2.0 Total Bilirubin AST ALT Alkaline Phosphatase Total Creatine Kinase 109 Troponin I 0.68 H* B-Natriuretic Peptide Total Protein Albumin Globulin Albumin/Globulin Ratio Triglycerides Cholesterol LDL Cholesterol HDL Cholesterol Procalcitonin TSH 06/19/18 06/19/18 06/19/18 04:00 04:00 07:50 WBC 9.3 RBC 4.15 Hgb 13.8 L Hct 42 MCV 100 H MCH 33 H MCHC 33 RDW 13 Plt Count 125 L MPV 7.3 L Neut % (Auto) Lymph % (Auto) Churchill % (Auto) Eos % (Auto) Baso % (Auto) Absolute Neuts (auto) Absolute Lymphs (auto) Absolute Monos (auto) Absolute Eos (auto) Absolute Basos (auto) Absolute Nucleated RBC Nucleated RBC % INR (Anticoag Therapy) APTT 41.1 H 29.9 Fibrinogen D-Dimer, Quantitative Patient Temperature ABG pH ABG pH (Temp Correct) ABG pCO2 ABG pCO2 (Temp Corrct ABG pO2 ABG pO2 (Temp Correct ABG HCO3 ABG O2 Saturation ABG Base Excess VBG pH VBG pCO2 VBG pO2 VBG HCO3 VBG O2 Saturation VBG Base Excess Respiration Rate O2 Delivery Device Ventilator Type Vent Mode FiO2 Inspiratory Time PEEP Pressure Support Pressure Control EPAP IPAP BiPAP Sodium Potassium Chloride Carbon Dioxide Anion Gap BUN Creatinine Est GFR ( Amer) Est GFR (Non-Af Amer) BUN/Creatinine Ratio Glucose POC Glucose (mg/dL) Hemoglobin A1c Lactic Acid Calcium Phosphorus Magnesium Total Bilirubin AST ALT Alkaline Phosphatase Total Creatine Kinase Troponin I B-Natriuretic Peptide Total Protein Albumin Globulin Albumin/Globulin Ratio Triglycerides Cholesterol LDL Cholesterol HDL Cholesterol Procalcitonin TSH 06/19/18 06/19/18 07:50 07:50 WBC 9.4 RBC 4.21 Hgb 13.9 L Hct 42 MCV 101 H MCH 33 H MCHC 33 RDW 13 Plt Count 131 L MPV 7.3 L Neut % (Auto) 76.7 Lymph % (Auto) 14.9 Churchill % (Auto) 6.9 Eos % (Auto) 0.9 Baso % (Auto) 0.6 Absolute Neuts (auto) 7.1 Absolute Lymphs (auto) 1.4 Absolute Monos (auto) 0.6 Absolute Eos (auto) 0.1 Absolute Basos (auto) 0.1 Absolute Nucleated RBC 0 Nucleated RBC % 0 INR (Anticoag Therapy) APTT Fibrinogen D-Dimer, Quantitative Patient Temperature ABG pH ABG pH (Temp Correct) ABG pCO2 ABG pCO2 (Temp Corrct ABG pO2 ABG pO2 (Temp Correct ABG HCO3 ABG O2 Saturation ABG Base Excess VBG pH VBG pCO2 VBG pO2 VBG HCO3 VBG O2 Saturation VBG Base Excess Respiration Rate O2 Delivery Device Ventilator Type Vent Mode FiO2 Inspiratory Time PEEP Pressure Support Pressure Control EPAP IPAP BiPAP Sodium Potassium Chloride Carbon Dioxide Anion Gap BUN 22 Creatinine 1.30 H Est GFR ( Amer) 63.9 Est GFR (Non-Af Amer) 52.9 BUN/Creatinine Ratio Glucose 137 H POC Glucose (mg/dL) Hemoglobin A1c Lactic Acid Calcium Phosphorus Magnesium Total Bilirubin AST ALT Alkaline Phosphatase Total Creatine Kinase Troponin I B-Natriuretic Peptide Total Protein Albumin Globulin Albumin/Globulin Ratio Triglycerides Cholesterol LDL Cholesterol HDL Cholesterol Procalcitonin TSH Imaging: cxr 06/18 - no active disease noted CT brain 06/18 pending CTA chest 06/18 - right maintem PE, RV strain+ LE venous duplex 06/19 - bilateral Right > left DVTs Assessment: 83y M w/pmhx of GERD, HLD, depression; comes to ER after he felt dizzy at 3pm, tried to get to bed and fell and hit his head. He states he felt worse after and sob, then called EMS. Denies syncope/cp. EMS noted tachycardia, given adenosine IV with minimal improvement. In ER he was found hypotensive 70s , with a wide complex tachycardia on EKG. He was cardioverted to NSR, given IVF bolus with improving BPs. Post EKG demonstrated NSR with RBBB pattern and inferior Qwaves+. -Submassive PE with acute cor pulmonale -Renal insufficiency -Lactic Acidosis -Hyperglycemia -s/p fall with left frontal trauma -new onset DM Plan: Neuro- awake/alert. will restart prozac after dose obtained. delirium prec. asp prec. -CT head/brain pending for left frontal trauma; head wound intact without further increase size CVS- NSR, ectopy+. BP better today. nNC 75cc/hr. Making urine. EKG RBBB resolved -s/p tpa for submassive PE with intermittent hypotension; on IV hepairn now; hemodyn appears stable. will need bridge to NOAC or warfarin. -SOB was likely from PE; given new DM, inferior qwaves, may need outpatient stress test down the line also. Resp- on 4L NC, no distress. -CTA with Right mainstem PE; LE duplex + bilateral DVTs. s/p IV tpa 06/18. IV heparin with bridge to NOAC/warfarin tomorrow. -no plan for IVC filter now, tolerating AC. -will need outpatient PFTs for eval of chronic SOB otherwise, this may have been all PE related though, but he does have big smoking history. ID- wbc 9. afebrile. CTA with PE. no infectious process. no abx indicated. GI- cardiac diet. PPI for GERD. Renal- Renal insuff, CR 1.3, improved. Mkaing urine. cont NS 75cc/hr. check urinalysis. Heme- hg okay. plt ok. 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 plan for snf AC. Heme consult. bridge to NOAC/warfarin once past 24 hour window. no SCDs. no plan for IVC filter now, hemodyn stable/improved, tolerating AC. -bleeding precautions today. Endo- hba1c 8.2, new onset DM. fingerstick ACHS. lispro coverage. will need nursing home control onc discharged. tsh 0.7 Musculsk- pressure ulcer prophylaxis. Bedrest today Wounds- none Nutrition- diabetic diet DVT prophylaxis: IV heparin GI prophylaxis: ppi Central Line: no Arterial Line: no Stack Cathetor: no Disposition: ICU Code Status: full code Total Critical Care time is 40 minutes, excluding procedures/teaching Don Rodriguez MD [employer] (Electronically Signed)
[2018-06-19] MEDS: NS 0.9% 1000 ML* 1,000 ML IV SCH (13:11)
[2018-06-19 16:35] LABS: Urine Appearance Cloudy; Urine Blood 2+ (Negative); Urine Color Yellow; Urine Ketones Negative (Negative); Urine Protein Negative (Negative); Urine Red Blood Cell 3+(>10/hpf) (Absent); Urine Specific Gravity 1.046 (1.010-1.030); Urine Urobilinogen Negative (Negative); Urine White Blood Cell 3+(>20/hpf) (Absent)
--- NOTE | 2018-06-19 17:40 | ECHO ---
Patient: RHETT TUCKER [facility] Rec#: [id number] : 1935 Date: 06/19/2018 Age: 83y Height: 188 cm / 74.0 in Weight: 97.5 kg / 214.9 lbs Sex: M BSA: 2.2 Room#: ICU 10 Admit Date#: 06/18/2018 Type: Inpatient Referring: Don Rodriguez Reading: Joseph Delgado MD Glove Wrapper: Ruba Vivas RN RDCS CC: Sincere Carter Transthoracic Echocardiogram Indication: SOB, V. tach, Pulmonary embolism S/P t-PA BP: 132/82 HR: 72 Rhythm: NSR with PVCs Findings History: HLD, smoker, ETOH use Technical Comments: The study quality is fair. The study is technically limited due to the patient's smoking history. Left Ventricle: The left ventricular chamber size is normal. Mild concentric left ventricular hypertrophy is observed. Mild global hypokinesis of the left ventricle is observed. There is mildly decreased left ventricular systolic function. The estimated ejection fraction is 45-50%. There is septal flattening of the interventricular septum consistent with right ventricular volume or pressure overload. The assessment of diastolic function is non-diagnostic. Left Atrium: The left atrium is mild to moderately dilated. Right Ventricle: The right ventricle wall thickness is mildly increased. The right ventricle is moderate to severely dilated. The right ventricular global systolic function is moderately reduced. Right Atrium: The right atrium is moderately dilated. Aortic Valve: The aortic valve is trileaflet. The aortic valve leaflets are mildly thickened. There is no evidence of aortic regurgitation. There is no evidence of aortic stenosis. Mitral Valve: The mitral valve leaflets are mildly thickened. There is trace to mild mitral regurgitation. There is no evidence of mitral stenosis. Tricuspid Valve: The tricuspid valve leaflets are normal. There is moderate tricuspid regurgitation. There is evidence of mild to moderate pulmonary hypertension. There is no tricuspid stenosis. Pulmonic Valve: The pulmonic valve appears normal. There is a trace pulmonic regurgitation. There is no pulmonic stenosis. Pericardium: There is no significant pericardial effusion. Aorta: There is no dilatation of the ascending aorta. The aortic arch is not well visualized. There is no dilation of the aortic root. Pulmonary Artery: The main pulmonary artery is not well visualized. Venous: The venous system is not well visualized. The inferior vena cava is not visualized. Summary: There was not any prior study for comparison. Conclusions Mild global hypokinesis of the left ventricle is observed. There is mildly decreased left ventricular systolic function. The estimated ejection fraction is 45-50%. There is septal flattening of the interventricular septum consistent with right ventricular volume or pressure overload. The right ventricle is moderate to severely dilated. The right ventricular global systolic function is moderately reduced. There is no evidence of aortic regurgitation. There is no evidence of aortic stenosis. There is trace to mild mitral regurgitation. There is moderate tricuspid regurgitation. There is evidence of mild to moderate pulmonary hypertension. There is no significant pericardial effusion. Measurements Name Value Normal Range RVIDd (AP) 2D 4.8 cm (0.9 - 2.6) RVDdMajor (2D) 5.5 cm (2.2 - 4.4) RVAW (2D) 0.6 cm (0.2 - 0.5) RAd ISD 4CH 6.5 cm (3.4 - 4.9) RA (A4C)W 5.1 cm (2.9 - 4.6) IVSd (2D) 1.1 cm (0.6 - 1) LVPWd (2D) 1.1 cm (0.6 - 1) LVIDd (2D) 3.7 cm (3.6 - 5.4) LVIDs (2D) 3.2 cm - LV FS (2D) 14 % (25 - 45) Aortic Annulus 2.3 cm (1.4 - 2.6) Ao root diameter (2D) 3.5 cm (2.1 - 3.5) Ascending Ao 3.4 cm (2.1 - 3.4) LA dimension (AP) 2D 3.6 cm (2.3 - 3.8) LAd ISD 4CH 6.4 cm (2.9 - 5.3) LA ISD 4CH W 3.8 cm (2.5 - 4.5) Name Value Normal Range LA ESV BP (A/L) index 21.8 ml/m2 - Name Value Normal Range MV E-wave Vmax 0.55 m/sec - MV deceleration time 299 msec - MV A-wave Vmax 0.86 m/sec - LV septal e' Vmax 0.07 m/sec - LV lateral e' Vmax 0.09 m/sec - LV E:e' septal ratio 7.9 ratio - LV E:e' lateral ratio 6.1 ratio - Name Value Normal Range AV Vmax 1.2 m/sec - AV VTI 25.9 cm - AV peak gradient 6 mmHg - AV mean gradient 3 mmHg - LVOT Vmax 0.86 m/sec - LVOT VTI 14 cm - LVOT peak gradient 3 mmHg - LVOT mean gradient 2 mmHg - Name Value Normal Range TR Vmax 3 m/sec - TR peak gradient 36 mmHg - RAP 8 mmHg - RVSP 44 mmHg - Name Value Normal Range PV Vmax 0.54 m/sec -
[2018-06-20 04:18] LABS: ABS Basophils 0.2 10^3/ul (0-0.2); ABS Eosinophils 0.3 10^3/ul (0-0.6); ABS Lymphocytes 1.3 10^3/ul (1.0-4.8); ABS Monocytes 0.5 10^3/ul (0-0.8); ABS Neutrophils 5.1 10^3/ul (1.5-7.7); ABS Nucleated RBC 0 10^3/ul; Eosinophil % 4.1 %; Hematocrit 38 % (42-52); Hemoglobin 12.9 g/dl (14.0-18.0); Lymphocyte % 18.2 %; Mean Corpuscular HGB Conc 34 g/dl (31-36); Mean Corpuscular Hemoglobin 34 pg (27-31); Mean Corpuscular Volume 100 fL (80-94); Mean Platelet Volume 7.3 fL (7.4-10.4); Nucleated Red Blood Cells % 0; Platelet Count 128 10^3/ul (150-450); Red Blood Count 3.81 10^6/ul (4.00-5.40); Red Cell Distribution Width 13 % (10.5-15); White Blood Count 7.4 10^3/ul (3.5-10.8)
[2018-06-20 04:35] LABS: EGFR Non-African American 61.5 (>60)
[2018-06-20] MEDS: Insulin LISPRO* 1 UNITS UNIT SUBCUT SCH ×4 (08:34→20:20)
[2018-06-20] MEDS: Omeprazole CAP* 20 MG PO SCH (08:50)
[2018-06-20] MEDS: Tamsulosin CAP* 0.4 MG PO SCH (08:50)
[2018-06-20] MEDS: Aspirin 81 mg CHEW TAB* 81 MG TAB.CHEW PO SCH (08:50)
--- NOTE | 2018-06-20 10:59 | PN ---
Progress Note - Progress Note Date of Service: 06/20/18 Note: Progress Note -- Critical Care 24 hour events: -no events overnight; on 4 L NC now -some SOB when moving around apparent -no cough/sputum, no n/v/abd pain -afebrile, making urine, HR 80s, BP hypertensive now Tele: NSR Vitals: Vital Signs: Temp Pulse Resp BP Pulse Ox 98.3 F 89 34 146/88 92 06/20/18 07:58 06/20/18 10:01 06/20/18 10:01 06/20/18 10:01 06/20/18 10:01 O2/Vent: NC 4L Infusions: IV heparin Current Medications: Amlodipine Besylate (Norvasc Tab*) 5 mg PO DAILY [facility] Aspirin (Aspirin 81 Mg Chew Tab*) 81 mg PO DAILY [facility] Last Admin: 06/20/18 08:50 Dose: 81 mg Dextrose (D50w Syringe 50 Ml*) 12.5 gm IV PUSH .FOR FS < 60 - SS PRN PRN Reason: FS < 60 Sodium Chloride (Ns 0.9% 1000 Ml*) 1,000 mls @ 75 mls/hr IV .PER RATE [facility] Last Admin: 06/19/18 13:11 Dose: 75 mls/hr Heparin Sodium/Dextrose (Heparin Drip 25,000 Units(*)) 25,000 units in 500 mls @ 0 mls/hr IV PER RATE [facility]; Protocol Last Admin: 06/19/18 08:06 Dose: 20 mls/hr Insulin Human Lispro (Humalog*) 0 units SUBCUT FS ACHS ICU [facility]; Protocol Last Admin: 06/20/18 08:34 Dose: Not Given Metoprolol Tartrate (Lopressor Iv*) 5 mg IV Q6H PRN PRN Reason: for tachycardia >140 Omeprazole (Prilosec Cap*) 20 mg PO QAM [facility] Last Admin: 06/20/18 08:50 Dose: 20 mg Tamsulosin HCl (Flomax Cap*) 0.8 mg PO QAM [facility] Last Admin: 06/20/18 08:50 Dose: 0.8 mg Physical Exam: General: awake, alert, no distress, no diaphoresis Head: Left frontal small wound open, nonbleeding, no hematoma HEENT: no pallor, no icterus, moist mucous membranes Neck: soft, supple, no jvd, no stridor CVS: normal rate, regular, no murmur Resp: bilateral air entry, no rhales/wheeze/rhonchi, no acc muscle use Abdomen: soft, nontender, nondistended, bowel sounds present Ext: pulses+, warm, no edema Skin: intact Neuro: awake, alert, orientedx3, moving all extremities, no gross focal deficit Labs: Laboratory Results - last 24 hr 06/19/18 06/19/18 06/19/18 04:00 14:00 14:00 WBC RBC Hgb Hct MCV MCH MCHC RDW Plt Count MPV Neut % (Auto) Lymph % (Auto) Jay % (Auto) Eos % (Auto) Baso % (Auto) Absolute Neuts (auto) Absolute Lymphs (auto) Absolute Monos (auto) Absolute Eos (auto) Absolute Basos (auto) Absolute Nucleated RBC Nucleated RBC % APTT 75.6 H Sodium 139 Potassium 4.1 Chloride 110 Carbon Dioxide 23 Anion Gap 6 BUN 24 Creatinine 1.35 H Est GFR ( Amer) 61.2 Est GFR (Non-Af Amer) 50.6 BUN/Creatinine Ratio 17.8 Glucose 135 H POC Glucose (mg/dL) Calcium 8.1 L Phosphorus 3.2 Magnesium 2.0 Total Creatine Kinase 109 Troponin I 0.68 H* Free T4 Cancelled 1.25 H Total T3 Cancelled 56 L Urine Color Urine Appearance Urine pH Ur Specific [place] Urine Protein Urine Ketones Urine Blood Urine Nitrate Urine Bilirubin Urine Urobilinogen Ur Leukocyte Esterase Urine WBC (Auto) Urine RBC (Auto) Urine Bacteria Granular Casts Urine Glucose Urine Ascorbic Acid 06/19/18 06/19/18 06/19/18 16:10 19:53 21:30 WBC RBC Hgb Hct MCV MCH MCHC RDW Plt Count MPV Neut % (Auto) Lymph % (Auto) Jay % (Auto) Eos % (Auto) Baso % (Auto) Absolute Neuts (auto) Absolute Lymphs (auto) Absolute Monos (auto) Absolute Eos (auto) Absolute Basos (auto) Absolute Nucleated RBC Nucleated RBC % APTT 59.7 H Sodium Potassium Chloride Carbon Dioxide Anion Gap BUN Creatinine Est GFR ( Amer) Est GFR (Non-Af Amer) BUN/Creatinine Ratio Glucose POC Glucose (mg/dL) 215 H Calcium Phosphorus Magnesium Total Creatine Kinase Troponin I Free T4 Total T3 Urine Color Yellow Urine Appearance Cloudy Urine pH 5.0 Ur Specific [place] 1.046 H Urine Protein Negative Urine Ketones Negative Urine Blood 2+ A Urine Nitrate Negative Urine Bilirubin Negative Urine Urobilinogen Negative Ur Leukocyte Esterase 3+ A Urine WBC (Auto) 3+(>20/hpf) A Urine RBC (Auto) 3+(>10/hpf) A Urine Bacteria Absent Granular Casts Present A Urine Glucose 1+(50 mg/dl) A Urine Ascorbic Acid * A 06/20/18 06/20/18 06/20/18 04:00 04:00 04:00 WBC 7.4 RBC 3.81 L Hgb 12.9 L Hct 38 L MCV 100 H MCH 34 H MCHC 34 RDW 13 Plt Count 128 L MPV 7.3 L Neut % (Auto) 68.2 Lymph % (Auto) 18.2 Jay % (Auto) 7.4 Eos % (Auto) 4.1 Baso % (Auto) 2.1 Absolute Neuts (auto) 5.1 Absolute Lymphs (auto) 1.3 Absolute Monos (auto) 0.5 Absolute Eos (auto) 0.3 Absolute Basos (auto) 0.2 Absolute Nucleated RBC 0 Nucleated RBC % 0 APTT 69.4 H Sodium 137 Potassium 4.3 Chloride 109 Carbon Dioxide 25 Anion Gap 3 BUN 22 Creatinine 1.14 Est GFR ( Amer) 74.4 Est GFR (Non-Af Amer) 61.5 BUN/Creatinine Ratio 19.3 Glucose 127 H POC Glucose (mg/dL) Calcium 8.1 L Phosphorus 3.0 Magnesium 1.6 L Total Creatine Kinase Troponin I Free T4 Total T3 Urine Color Urine Appearance Urine pH Ur Specific [place] Urine Protein Urine Ketones Urine Blood Urine Nitrate Urine Bilirubin Urine Urobilinogen Ur Leukocyte Esterase Urine WBC (Auto) Urine RBC (Auto) Urine Bacteria Granular Casts Urine Glucose Urine Ascorbic Acid 06/20/18 08:31 WBC RBC Hgb Hct MCV MCH MCHC RDW Plt Count MPV Neut % (Auto) Lymph % (Auto) Jay % (Auto) Eos % (Auto) Baso % (Auto) Absolute Neuts (auto) Absolute Lymphs (auto) Absolute Monos (auto) Absolute Eos (auto) Absolute Basos (auto) Absolute Nucleated RBC Nucleated RBC % APTT Sodium Potassium Chloride Carbon Dioxide Anion Gap BUN Creatinine Est GFR ( Amer) Est GFR (Non-Af Amer) BUN/Creatinine Ratio Glucose POC Glucose (mg/dL) 124 H Calcium Phosphorus Magnesium Total Creatine Kinase Troponin I Free T4 Total T3 Urine Color Urine Appearance Urine pH Ur Specific [place] Urine Protein Urine Ketones Urine Blood Urine Nitrate Urine Bilirubin Urine Urobilinogen Ur Leukocyte Esterase Urine WBC (Auto) Urine RBC (Auto) Urine Bacteria Granular Casts Urine Glucose Urine Ascorbic Acid Imaging: cxr 06/18 - no active disease noted CT brain 06/18 pending CTA chest 06/18 - right maintem PE, RV strain+ LE venous duplex 06/19 - bilateral Right > left DVTs Assessment: 83y M w/pmhx of GERD, HLD, depression; comes to ER after he felt dizzy at 3pm, tried to get to bed and fell and hit his head. He states he felt worse after and sob, then called EMS. Denies syncope/cp. EMS noted tachycardia, given adenosine IV with minimal improvement. In ER he was found hypotensive 70s , with a wide complex tachycardia on EKG. He was cardioverted to NSR, given IVF bolus with improving BPs. Post EKG demonstrated NSR with RBBB pattern and inferior Qwaves+. -Submassive PE with acute cor pulmonale; s/p 1/2 dose tpa 06/19 -Bilateral LE DVTs -CHAYO, improved -Lactic Acidosis -s/p fall with left frontal trauma -DM Plan: Neuro- awake/alert. will restart prozac after dose obtained. delirium prec. asp prec. -CT head/brain left frontal trauma; head wound intact without further increase size CVS- NSR, ectopy+. Hypertensive, start norvasc 5mg daily. d/c ivf. EKG RBBB resolved -on IV heparin, bridge to Xarelto today. Resp- -on 4L NC, no distress. cont to wean o2 -CTA with Right mainstem PE; LE duplex + bilateral DVTs. s/p IV tpa 06/18. IV heparin with bridge to Rivaroxaban today -no plan for IVC filter now, tolerating AC. -will need outpatient PFTs for eval of chronic SOB otherwise, this may have been all PE related though, but he does have big smoking history. ID- wbc normal. afebrile. CTA with PE. no infectious process. no abx indicated. GI- cardiac diet. PPI for GERD. Renal- CHAOY improved. d/c IVF. K okay, no acidosis. no elder. Heme- hg okay. plt ok. 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 IV heparin, therapeutic, bridge to rivaroxaban today. Heme consult. Plan for senior living/lifelong AC with outpatient w/u for hypercoag state. Endo- hba1c 8.2, known DM but has been diet controlled. discussed with patient but refusing carb controlled diet in hospital, doesnt want insulin. he has controlled with weight loss in past and diet and will follow up outpatient. noted slighlty elevated BG. Musculsk- pressure ulcer prophylaxis. oob to chair, pt/ot Wounds- none Nutrition- regular diet DVT prophylaxis: IV heparin GI prophylaxis: ppi Central Line: no Arterial Line: no Elder Cathetor: no Disposition: may be stable for medical floor later today Code Status: full code Total Critical Care time is 35 minutes, excluding procedures/teaching Don Rodriguez MD Assistant At Surgery (Electronically Signed)
[2018-06-20] MEDS: amLODIPine TAB* 5 MG PO SCH (12:12)
[2018-06-20] MEDS: Heparin DRIP 25,000 UNITS(*) 25,000 UNITS/500 ML BAG IV SCH (12:21)
[2018-06-20] MEDS: Rivaroxaban TAB(*) 15 MG PO SCH (20:14)
--- NOTE | 2018-06-20 21:05 | CONS ---
CONSULTATION REPORT: ADDENDUM: DATE OF CONSULTATION: 06/20/18 Following discovery of the pulmonary embolism, the patient was given half dose TPA with marked improvement in terms of stability of vital signs by the following morning. He reports that his breathing feels markedly improved at this point. He did go on to have a lower extremity venous duplex, which revealed bilateral right greater than left DVT with the DVT extending above the knee. Echocardiogram did reveal right ventricle with wall thickness mildly increased, with the right ventricle to be [id number] dilated, and global systolic function of the right ventricle is moderately reduced. The left ventricle had mild global hypokinesis as well with mildly decreased left ventricular systolic function with an ejection fraction of 45% to 50%. PAST MEDICAL HISTORY: Irregular heart rhythm in the past, workup with Cardiology included Holter and stress test, but was no echo and he does not believe he ever has had atrial fibrillation. This was in [place] when he had lived in that area until recently. History of hypertension. History of GERD, history of depression. No history of VT, CVA, diabetes mellitus. PAST SURGICAL HISTORY: Otherwise significant for appendectomy, tonsillectomy, hospitalization for fractured leg, but no surgery. No other surgeries overtime. MEDICATIONS: At the time of admission: 1. Aspirin 325 mg daily. 2. Finasteride 5 mg daily. 3. Multivitamin. 4. Zoloft 12.5 mg daily. ALLERGIES: None. FAMILY HISTORY: Father with pulmonary embolism at age 58 in 1968, dying of severe massive PE, with earlier use of a support hose and the patient believes having had previous clotting in his legs, not sure what medications may have been used. Sister started on anticoagulation with Coumadin in her 30s, took for the rest of her life and he believes this was for deep venous thrombosis. She did about 5 to 10 years ago at age 75. He reports clotting in his brother , but then reports this was a "blood clot to the brain" and at age 66. Another brother of an VT at age 54 and another brother is alive and well. He has 6 children, all in good health. 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 Alcohol, used to drink 16 ounces of hard liquor per day, but stopped about 1 month ago and 2 to 3 glasses of wine per day. Smoking for over 40 years , stopping 1 year ago. Recently in February of 2017. Living in independent living at [place]. REVIEW OF SYSTEMS: Energy level has been good. Weight stable. No significant nausea or vomiting. No significant change in bowel or bladder habits. No significant known arrhythmias. No significant arthritic or bony complaints beyond that associated with age in multiple different sites. Review of systems otherwise negative. PHYSICAL EXAM: An 83-year-old male, in no acute distress. Vital Signs: Blood pressure 140/77, pulse 75, O2 saturation 93% on room air. HEENT: PERRL, EOMI. No erythema or exudates. No palpable cervical, supraclavicular or axillary adenopathy. Lungs: Clear. Heart: Regular rate and rhythm without murmurs, rubs, or gallops. Abdomen: Soft, nontender without masses or organomegaly. Extremities: No edema. IMPRESSION: An 83-year-old male with recent submassive pulmonary embolism, treated with half dose of TPA and then currently on anticoagulation with heparin. Plan is to transition to NOAC. Rivaroxaban will be started at 15 mg b.i.d. and then transitioned to 20 mg daily after 3 weeks. Given the acuity of his pulmonary embolism leading to ventricular tachycardia and submassive clots in the right lung, the patient should be on lifelong anticoagulation. This pulmonary embolism had occurred in an unprovoked manner. In addition, this was a recurrent event for him having had a previous pulmonary embolism approximately 2 to 3 years ago, which was totally asymptomatic and found incidentally on a CT scan. He has an impressive history for family with a sister on Coumadin for clot since her 30s and her father dying of pulmonary embolism at 58. Given his personal and previous history and a history in his family, he should have hypercoagulable workup to include prothrombin gene mutation, factor V Leiden, these should not be affected by his current clotting or being on anticoagulation. It will also be nice to see protein C, protein S, antithrombin 3, and anticardiolipin antibodies, although these may be affected by current medications. The patient is asked to follow up in our office in approximately 3 months' time to see how he is doing. As long as he is not at significant fall risk or have other contraindications, anticoagulation such as bleeding tendencies, anticoagulation should be continued indefinitely. Although this was a spontaneous unprovoked blood clot, there is no real reason for further workup above and beyond that. There is no proof that this is survival advantage to doing more than standard screening for cancer in this population. [id number]/[facility] #: [id number] MTDD
--- NOTE | 2018-06-20 22:27 | CONS ---
CONTINUATION ADDENDUM NOW INCLUDED ON THIS REPORT ONCOLOGY/HEMATOLOGY CONSULTATION REPORT: DATE OF CONSULT: 06/20/18 REASON FOR CONSULTATION: Pulmonary embolism. HISTORY OF PRESENT ILLNESS: Mr. Ulrich is an 83-year-old male with a previous history of a pulmonary embolism approximately 2 to 3 years ago. He reports at that time, he was living in the [facility], had a CT scan which was done as part of a workup for weight loss and reports that he was found to have a small pulmonary embolism. He denies any shortness of breath, chest pain, or palpitations, or any symptoms in his legs at the time. He reports that he was hospitalized overnight. He is not sure if he initially started on anticoagulation or not. He reports he was subsequently seen by his family physician, Dr. Anton Almazan of [facility] and was treated with Coumadin. He is somewhat confused as to the details, initially tell me that his prior treatment with Coumadin was not directly after this pulmonary embolism and then later on rethinking stating that it probably was. He believes he was not treated for any more than about 3 months with anticoagulation. Subsequent to this he moved to this area and has been living an independent living at [place] after his last February and he is now in this area to be nearer to his oldest daughter. He has done well and typically has very little in the way of acute symptoms. He reports that he typically does take a nap and he went to take a nap at about midafternoon on 10/01, went to take a nap, fell and struck his head on the night stand. But an hour later he was continuing not to feel well and started feeling more short of breath and called 911. He does not believe that he had full syncope. He was noted to have a tachycardia, was given IV adenosine with minimal improvement. In the emergency room, he was hypotensive with the systolic blood pressure in the 70s with a wide complex tachycardia. He was cardioverted to normal sinus rhythm and following IV fluids had improvement in both blood pressure and pulse. A bedside echocardiogram did not show any significant decrease in cardiac function. As a part of the workup, he had a CTA of the chest performed. This revealed large pulmonary embolism in the right main pulmonary artery extending into all the subsegmental branches of the right lower lobe and middle lobe. Also pulmonary embolism in one of the segments in the right upper lobe. There was evidence for cardiac strain along with bronchiectasis and a pleural effusion in the left basilar region with atelectasis present. Because of this, the patient was then treated with tPA. He received half of the typical dose. CONTINUATION ADDENDUM: Following discovery of the pulmonary embolism, the patient was given half dose TPA with marked improvement in terms of stability of vital signs by the following morning. He reports that his breathing feels markedly improved at this point. He did go on to have a lower extremity venous duplex, which revealed bilateral right greater than left DVT with the DVT extending above the knee. Echocardiogram did reveal right ventricle with wall thickness mildly increased, with the right ventricle to be [id number] dilated, and global systolic function of the right ventricle is moderately reduced. The left ventricle had mild global hypokinesis as well with mildly decreased left ventricular systolic function with an ejection fraction of 45% to 50%. PAST MEDICAL HISTORY: Irregular heart rhythm in the past, workup with Cardiology included Holter and stress test, but was no echo and he does not believe he ever has had atrial fibrillation. This was in [place] when he had lived in that area until recently. History of hypertension. History of GERD, history of depression. No history of [place], CVA, diabetes mellitus. PAST SURGICAL HISTORY: Otherwise significant for appendectomy, tonsillectomy, hospitalization for fractured leg, but no surgery. No other surgeries overtime. MEDICATIONS: At the time of admission: 1. Aspirin 325 mg daily. 2. Finasteride 5 mg daily. 3. Multivitamin. 4. Zoloft 12.5 mg daily. ALLERGIES: None. FAMILY HISTORY: Father with pulmonary embolism at age 58 in 1968, dying of severe massive PE, with earlier use of a support hose and the patient believes having had previous clotting in his legs, not sure what medications may have been used. Sister started on anticoagulation with Coumadin in her 30s, took for the rest of her life and he believes this was for deep venous thrombosis. She did about 5 to 10 years ago at age 75. He reports clotting in his brother , but then reports this was a "blood clot to the brain" and at age 65. Another brother of an AZ at age 54 and another brother is alive and well. He has 6 children, all in good health. 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 Alcohol, used to drink 16 ounces of hard liquor per day, but stopped about 1 month ago and 2 to 3 glasses of wine per day. Smoking for over 40 years , stopping 1 year ago. Recently in February of 2017. Living in independent living at [place]. REVIEW OF SYSTEMS: Energy level has been good. Weight stable. No significant nausea or vomiting. No significant change in bowel or bladder habits. No significant known arrhythmias. No significant arthritic or bony complaints beyond that associated with age in multiple different sites. Review of systems otherwise negative. PHYSICAL EXAM: An 83-year-old male, in no acute distress. Vital Signs: Blood pressure 140/77, pulse 75, O2 saturation 93% on room air. HEENT: PERRL, EOMI. No erythema or exudates. No palpable cervical, supraclavicular or axillary adenopathy. Lungs: Clear. Heart: Regular rate and rhythm without murmurs, rubs, or gallops. Abdomen: Soft, nontender without masses or organomegaly. Extremities: No edema. IMPRESSION: An 83-year-old male with recent submassive pulmonary embolism, treated with half dose of TPA and then currently on anticoagulation with heparin. Plan is to transition to NOAC. Rivaroxaban will be started at 15 mg b.i.d. and then transitioned to 20 mg daily after 3 weeks. Given the acuity of his pulmonary embolism leading to ventricular tachycardia and submassive clots in the right lung, the patient should be on lifelong anticoagulation. This pulmonary embolism had occurred in an unprovoked manner. In addition, this was a recurrent event for him having had a previous pulmonary embolism approximately 2 to 3 years ago, which was totally asymptomatic and found incidentally on a CT scan. He has an impressive history for family with a sister on Coumadin for clot since her 30s and her father dying of pulmonary embolism at 58. Given his personal and previous history and a history in his family, he should have hypercoagulable workup to include prothrombin gene mutation, factor V Leiden, these should not be affected by his current clotting or being on anticoagulation. It will also be nice to see protein C, protein S, antithrombin 3, and anticardiolipin antibodies, although these may be affected by current medications. The patient is asked to follow up in our office in approximately 3 months' time to see how he is doing. As long as he is not at significant fall risk or have other contraindications, anticoagulation such as bleeding tendencies, anticoagulation should be continued indefinitely. Although this was a spontaneous unprovoked blood clot, there is no real reason for further workup above and beyond that. There is no proof that this is survival advantage to doing more than standard screening for cancer in this population. [id number]/[facility] #: [id number] A- [id number]/[facility] #: [id number] [facility]
[2018-06-21 06:10] LABS: Hematocrit 40 % (42-52); Hemoglobin 13.7 g/dl (14.0-18.0); Mean Corpuscular HGB Conc 34 g/dl (31-36); Mean Corpuscular Hemoglobin 33 pg (27-31); Mean Corpuscular Volume 98 fL (80-94); Mean Platelet Volume 7.1 fL (7.4-10.4); Platelet Count 144 10^3/ul (150-450); Red Cell Distribution Width 12 % (10.5-15); White Blood Count 6.9 10^3/ul (3.5-10.8)
[2018-06-21 06:22] LABS: EGFR Non-African American 68.4 (>60)
[2018-06-21] MEDS: Insulin LISPRO* 1 UNITS UNIT SUBCUT SCH ×4 (08:13→20:54)
[2018-06-21] MEDS: Aspirin 81 mg CHEW TAB* 81 MG TAB.CHEW PO SCH (08:29)
[2018-06-21] MEDS: Rivaroxaban TAB(*) 15 MG PO SCH ×2 (08:29→20:45)
[2018-06-21] MEDS: Omeprazole CAP* 20 MG PO SCH (08:29)
[2018-06-21] MEDS: amLODIPine TAB* 5 MG PO SCH (08:29)
[2018-06-21] MEDS: Tamsulosin CAP* 0.4 MG PO SCH (08:33)
--- NOTE | 2018-06-21 13:01 | PN ---
Subjective Date of Service: 06/21/18 Interval History: Pt feels well. Denies CP/SOB. on 3 l 02 , sats at 93% Objective Active Medications: Amlodipine Besylate (Norvasc Tab*) 5 mg PO DAILY [facility] Last Admin: 06/21/18 08:29 Dose: 5 mg Aspirin (Aspirin 81 Mg Chew Tab*) 81 mg PO DAILY [facility] Last Admin: 06/21/18 08:29 Dose: 81 mg Dextrose (D50w Syringe 50 Ml*) 12.5 gm IV PUSH .FOR FS < 60 - SS PRN PRN Reason: FS < 60 Insulin Human Lispro (Humalog*) 0 units SUBCUT FS ACHS ICU [facility]; Protocol Last Admin: 06/21/18 12:00 Dose: 2 units Omeprazole (Prilosec Cap*) 20 mg PO QAM [facility] Last Admin: 06/21/18 08:29 Dose: 20 mg Rivaroxaban (Xarelto(*)) 15 mg PO Q12H [facility] Last Admin: 06/21/18 08:29 Dose: 15 mg Tamsulosin HCl (Flomax Cap*) 0.8 mg PO QAM [facility] Last Admin: 06/21/18 08:33 Dose: 0.8 mg Vital Signs - 8 hr 06/21/18 06/21/18 06/21/18 07:59 08:00 11:45 Temperature 99.2 F 97.7 F Pulse Rate 72 72 Respiratory 20 18 18 Rate Blood Pressure 150/80 120/59 (mmHg) O2 Sat by Pulse 94 95 Oximetry Oxygen Devices in Use Now: Nasal Cannula Appearance: 83 yo M in nAD, aAOx3 Eyes: No Scleral Icterus, PERRLA Ears/Nose/Mouth/Throat: NL Teeth, Lips, Gums, Mucous Membranes Moist Neck: NL Appearance and Movements; NL JVP, Trachea Midline Respiratory: Symmetrical Chest Expansion and Respiratory Effort, Clear to Auscultation Cardiovascular: NL Sounds; No Murmurs; No JVD, RRR Abdominal: NL Sounds; No Tenderness; No Distention Lymphatic: No Cervical Adenopathy Extremities: No Edema, No Clubbing, Cyanosis Skin: No Rash or Ulcers, No Nodules or Sclerosis Neurological: Alert and Oriented x 3, NL Muscle Strength and Tone Result Diagrams: 06/21/18 05:51 06/21/18 05:51 Microbiology and Other Data: Microbiology 06/18/18 19:40 Nasal Screen MRSA (PCR) - Final Nasal Mrsa Not Detected Assess/Plan/Problems-Billing Assessment: 83 yo M with h/o prior unprovoked PE admitted with submassive PE and V. tach treated with low dose TPA at admission - Patient Problems (1) Pulmonary embolism with acute cor pulmonale Comment: tx with low dose TPA, in acute hypoxemic resp failure due to PE, requiring 3 L 02 will cont to ambulate and try to wean off 02, but may need to go home on 02 tomorrow (2) DVT, bilateral lower limbs Comment: cont Xarelto as per DR. Ram (3) GERD (gastroesophageal reflux disease) Comment: cont omeprazole (4) Renal insufficiency Comment: resolved ,likely due to hypoperfusion and cor pulmonale at presentation (5) DM2 (diabetes mellitus, type 2) Comment: pt aware of dx, HbA1C 8.2, not interested in DM teaching or treatment (6) Ventricular tachyarrhythmia Comment: s/p cardioversion at admission Echo showed EF45-5-% and cor pulmonale No recurrence of arrythmia, cont telem (7) DVT prophylaxis Comment: Xarelto Status and Disposition: inpatient
[2018-06-22 06:50] LABS: ABS Basophils 0.1 10^3/ul (0-0.2); ABS Eosinophils 0.3 10^3/ul (0-0.6); ABS Lymphocytes 1.3 10^3/ul (1.0-4.8); ABS Monocytes 0.5 10^3/ul (0-0.8); ABS Neutrophils 3.7 10^3/ul (1.5-7.7); ABS Nucleated RBC 0 10^3/ul; Eosinophil % 5.4 %; Hematocrit 40 % (42-52); Hemoglobin 13.7 g/dl (14.0-18.0); Lymphocyte % 21.7 %; Mean Corpuscular HGB Conc 34 g/dl (31-36); Mean Corpuscular Hemoglobin 34 pg (27-31); Mean Corpuscular Volume 99 fL (80-94); Mean Platelet Volume 7.3 fL (7.4-10.4); Nucleated Red Blood Cells % 0.2; Platelet Count 150 10^3/ul (150-450); Red Blood Count 4.07 10^6/ul (4.00-5.40); Red Cell Distribution Width 12 % (10.5-15); White Blood Count 5.8 10^3/ul (3.5-10.8)
[2018-06-22 07:08] LABS: EGFR Non-African American 67.6 (>60)
[2018-06-22] MEDS: Insulin LISPRO* 1 UNITS UNIT SUBCUT SCH ×4 (09:48→22:06)
[2018-06-22] MEDS: amLODIPine TAB* 5 MG PO SCH (09:50)
[2018-06-22] MEDS: Rivaroxaban TAB(*) 15 MG PO SCH ×2 (09:51→21:03)
[2018-06-22] MEDS: Omeprazole CAP* 20 MG PO SCH (09:51)
[2018-06-22] MEDS: Aspirin 81 mg CHEW TAB* 81 MG TAB.CHEW PO SCH (09:51)
[2018-06-22] MEDS: Tamsulosin CAP* 0.4 MG PO SCH (09:51)
--- NOTE | 2018-06-22 15:49 | PN ---
Subjective Date of Service: 06/22/18 Interval History: Pt ambulated on RA today, 02 sat was 90%, but HR went up to 150 with walking and 02 was placed back on. Pt has no complaints, denies CP, SOB Objective Active Medications: Amlodipine Besylate (Norvasc Tab*) 5 mg PO DAILY [facility] Last Admin: 06/22/18 09:50 Dose: 5 mg Aspirin (Aspirin 81 Mg Chew Tab*) 81 mg PO DAILY [facility] Last Admin: 06/22/18 09:51 Dose: 81 mg Dextrose (D50w Syringe 50 Ml*) 12.5 gm IV PUSH .FOR FS < 60 - SS PRN PRN Reason: FS < 60 Insulin Human Lispro (Humalog*) 0 units SUBCUT FS ACHS ICU [facility]; Protocol Last Admin: 06/22/18 12:33 Dose: 2 units Omeprazole (Prilosec Cap*) 20 mg PO QAM [facility] Last Admin: 06/22/18 09:51 Dose: 20 mg Rivaroxaban (Xarelto(*)) 15 mg PO Q12H [facility] Last Admin: 06/22/18 09:51 Dose: 15 mg Tamsulosin HCl (Flomax Cap*) 0.8 mg PO QAM [facility] Last Admin: 06/22/18 09:51 Dose: 0.8 mg Vital Signs - 8 hr 06/22/18 06/22/18 11:17 13:26 Temperature 97.9 F Pulse Rate 72 Respiratory 20 Rate Blood Pressure 129/70 (mmHg) O2 Sat by Pulse 97 94 Oximetry Oxygen Devices in Use Now: Nasal Cannula Appearance: 83 yo M in nAD, aAOx3 Eyes: No Scleral Icterus, PERRLA Ears/Nose/Mouth/Throat: NL Teeth, Lips, Gums, Mucous Membranes Moist Neck: NL Appearance and Movements; NL JVP, Trachea Midline Respiratory: Symmetrical Chest Expansion and Respiratory Effort, Clear to Auscultation Cardiovascular: NL Sounds; No Murmurs; No JVD Abdominal: NL Sounds; No Tenderness; No Distention, No Hepatosplenomegaly Lymphatic: No Cervical Adenopathy Extremities: No Edema, No Clubbing, Cyanosis Skin: No Nodules or Sclerosis, - - eschar covered abrasion on forehead Neurological: Alert and Oriented x 3, NL Muscle Strength and Tone Result Diagrams: 06/22/18 06:23 06/22/18 06:23 Microbiology and Other Data: Microbiology 06/18/18 19:40 Nasal Screen MRSA (PCR) - Final Nasal Mrsa Not Detected Assess/Plan/Problems-Billing Assessment: 83 yo M with h/o prior unprovoked PE admitted with submassive PE and V. tach treated with low dose TPA at admission - Patient Problems (1) Pulmonary embolism with acute cor pulmonale Comment: tx with low dose TPA, in acute hypoxemic resp failure due to PE, requiring 3 L 02 will cont to ambulate and try to wean off 02. As per d/w CM pt does not qualify for 02 due to no fci dx that caused hypoxemia (only acute PE) will cont to wean off 02 and eval for possible discharge daily (2) DVT, bilateral lower limbs Comment: cont Xarelto as per DR. Ram hypercoag w/up ordered. F/u with hematology 3 motnhs after d/c (3) GERD (gastroesophageal reflux disease) Comment: cont omeprazole (4) Renal insufficiency Comment: resolved ,likely due to hypoperfusion and cor pulmonale at presentation (5) DM2 (diabetes mellitus, type 2) Comment: pt aware of dx, HbA1C 8.2, not interested in DM teaching or treatment (6) Ventricular tachyarrhythmia Comment: s/p cardioversion at admission Echo showed EF45-50% and cor pulmonale No recurrence of arrythmia, cont telem (7) DVT prophylaxis Comment: Xarelto Status and Disposition: inpatient
[2018-06-23 05:42] LABS: Hematocrit 40 % (42-52); Hemoglobin 13.6 g/dl (14.0-18.0); Mean Corpuscular HGB Conc 34 g/dl (31-36); Mean Corpuscular Hemoglobin 33 pg (27-31); Mean Corpuscular Volume 99 fL (80-94); Mean Platelet Volume 7.2 fL (7.4-10.4); Platelet Count 169 10^3/ul (150-450); Red Blood Count 4.09 10^6/ul (4.00-5.40); Red Cell Distribution Width 13 % (10.5-15)
[2018-06-23 05:58] LABS: EGFR Non-African American 62.8 (>60)
[2018-06-23] MEDS: Rivaroxaban TAB(*) 15 MG PO SCH (09:13)
[2018-06-23] MEDS: Tamsulosin CAP* 0.4 MG PO SCH (09:13)
[2018-06-23] MEDS: Aspirin 81 mg CHEW TAB* 81 MG TAB.CHEW PO SCH (09:13)
[2018-06-23] MEDS: Omeprazole CAP* 20 MG PO SCH (09:13)
[2018-06-23] MEDS: amLODIPine TAB* 5 MG PO SCH (09:13)
[2018-06-23] MEDS: Insulin LISPRO* 1 UNITS UNIT SUBCUT SCH ×4 (09:14→20:36)
--- NOTE | 2018-06-23 16:15 | PN ---
Subjective Date of Service: 06/23/18 Interval History: without chest pain, SOB, abdominal pain, fever. desat on RA at both rest and with ambulation. Needing 3L with ambulation to maintain 91%. Very upset when [facility] would not cover his oxygen and his insurance would not cover the prescriped Xarelto. Rather than pay $330 monthly for the rest of his life he has chosen to do lovenox to coumadin bridge instead. Objective Active Medications: Amlodipine Besylate (Norvasc Tab*) 5 mg PO DAILY [facility] Last Admin: 06/23/18 09:13 Dose: 5 mg Aspirin (Aspirin 81 Mg Chew Tab*) 81 mg PO DAILY [facility] Last Admin: 06/23/18 09:13 Dose: 81 mg Dextrose (D50w Syringe 50 Ml*) 12.5 gm IV PUSH .FOR FS < 60 - SS PRN PRN Reason: FS < 60 Enoxaparin Sodium (Lovenox(*)) 100 mg SUBCUT Q12H [facility] Insulin Human Lispro (Humalog*) 0 units SUBCUT FS ACHS ICU [facility]; Protocol Last Admin: 06/23/18 13:14 Dose: 2 units Omeprazole ([facility]il[facility]c Cap*) [facility] Last Admin: 06/23/18 09:13 Dose: 20 mg Tamsulosin HCl (Flomax Cap*) 0.8 mg PO [facility] Last Admin: 06/23/18 09:13 Dose: 0.8 mg Warfarin Sodium (Coumadin Tab(*)) 5 mg PO DAILY@1700 [facility]; Protocol Vital Signs - 8 hr 06/23/18 06/23/18 11:17 13:59 Pulse Rate 62 Respiratory 20 Rate Blood Pressure 126/54 (mmHg) O2 Sat by Pulse 95 88 Oximetry Oxygen Devices in Use Now: Nasal Cannula Appearance: NAD Eyes: No Scleral Icterus Ears/Nose/Mouth/Throat: NL Teeth, Lips, Gums Neck: NL Appearance and Movements; NL JVP, Trachea Midline Respiratory: Symmetrical Chest Expansion and Respiratory Effort, Clear to Auscultation Cardiovascular: NL Sounds; No Murmurs; No JVD, RRR Abdominal: NL Sounds; No Tenderness; No Distention, No Hepatosplenomegaly Extremities: No Edema Skin: No Rash or Ulcers, No Nodules or Sclerosis Neurological: Alert and Oriented x 3, NL Sensation, NL Muscle Strength and Tone Nutrition: Taking PO's Result Diagrams: 06/23/18 05:26 06/23/18 05:26 Additional Lab and Data: Laboratory Results - last 24 hr 06/22/18 06/22/18 06/23/18 17:11 21:03 05:26 WBC 6.0 RBC 4.09 Hgb 13.6 L Hct 40 L MCV 99 H MCH 33 H MCHC 34 RDW 13 Plt Count 169 MPV 7.2 L Sodium Potassium Chloride Carbon Dioxide Anion Gap BUN Creatinine Est GFR ( Amer) Est GFR (Non-Af Amer) BUN/Creatinine Ratio Glucose POC Glucose (mg/dL) 165 H 191 H Calcium 06/23/18 06/23/18 05:26 07:11 WBC RBC Hgb Hct MCV MCH MCHC RDW Plt Count MPV Sodium 137 Potassium 4.0 Chloride 103 Carbon Dioxide 28 Anion Gap 6 BUN 17 Creatinine 1.12 Est GFR ( Amer) 75.9 Est GFR (Non-Af Amer) 62.8 BUN/Creatinine Ratio 15.2 Glucose 193 H POC Glucose (mg/dL) 160 H Calcium 8.9 Microbiology and Other Data: Microbiology 06/19/18 16:10 Urine Urine Culture - Final Staphylococcus Epidermidis 06/18/18 19:40 Nasal Nasal Screen MRSA (PCR) - Final Mrsa Not Detected Assess/Plan/Problems-Billing Assessment: 83 yo M with h/o prior unprovoked PE admitted with submassive PE and V. tach treated with low dose TPA at admission. Acute hypoxic respiratory failure continues. - Patient Problems (1) Pulmonary embolism with acute cor pulmonale Current Visit: Yes Status: Acute Code(s): I26.09 - OTHER PULMONARY EMBOLISM WITH ACUTE COR PULMONALE SNOMED Code(s): 69937865 Comment: s/p tx with half dose TPA, in acute hypoxemic resp failure due to PE, requiring 3 L 02 will cont to ambulate and try to wean off 02. [facility] refusing to provide other than as self pay given their experience that his insurance won't reimburse for it. s/p heparin then Xarelto but this is not covered by his insurance. Wishing to switch to coumadin instead for cost reasons. lovenox bridge. INR daily. f/u hypercoag workup (2) DVT, bilateral lower limbs Current Visit: Yes Status: Acute Code(s): I82.403 - ACUTE EMBOLISM AND THOMBOS UNSP DEEP VEINS OF LOW EXTRM, BI SNOMED Code(s): 139548775 Comment: switch to coumadin with lovenox bridge due to cost/insurance issues. has been on xarelto hypercoag w/up ordered. F/u with hematology 3 months after d/c (3) DM2 (diabetes mellitus, type 2) Current Visit: Yes Status: Acute Comment: Diabetes diagnosed 30 years ago, has attempted diet control recently with reported sucess. HbA1C 8.2 now, plans to discuss with his PCP (4) GERD (gastroesophageal reflux disease) Current Visit: Yes Status: Acute Code(s): K21.9 - GASTRO-ESOPHAGEAL REFLUX DISEASE WITHOUT ESOPHAGITIS SNOMED Code(s): 138462120 Comment: cont omeprazole (5) Renal insufficiency Current Visit: Yes Status: Acute Code(s): N28.9 - DISORDER OF KIDNEY AND URETER, UNSPECIFIED SNOMED Code(s): 755051403 Comment: resolved ,likely due to hypoperfusion and cor pulmonale at presentation (6) Ventricular tachyarrhythmia Current Visit: Yes Status: Acute Code(s): I47.2 - VENTRICULAR TACHYCARDIA SNOMED Code(s): 26743161 Comment: s/p cardioversion at admission Echo showed EF45-50% and cor pulmonale No recurrence of arrythmia, cont telem Status and Disposition: medicine inpatient.
[2018-06-23] MEDS ORDERED: Warfarin TAB(*) 5 MG PO SCH (17:00)
[2018-06-23] MEDS: Enoxaparin(*) 100 MG/ML SYR SUBCUT SCH (19:24)
--- NOTE | 2018-06-24 02:08 | DS ---
DISCHARGE SUMMARY: DATE OF ADMISSION: 06/18/18 DATE OF DISCHARGE: 06/24/18 ADMITTING PROVIDER: Don Rodriguez MD, business account manager. ATTENDING PHYSICIAN ON THE DAY OF DISCHARGE: Gab Christianson MD PRIMARY CARE PHYSICIAN: Sincere Burroughs MD CONSULTING MANAGER PHOTO AND ONCOLOGIST: Vasile Ram MD CHIEF COMPLAINT: Fall, shortness of breath, dizziness. PRINCIPAL DIAGNOSES: 1. Submassive right pulmonary embolism. 2. Acute hypoxic respiratory failure secondary to pulmonary embolism. 3. Bilateral deep venous thromboses in lower extremities. 4. Hypotension. 5. Wide complex tachycardia. 6. Right bundle-branch block. 7. Diabetes mellitus, uncontrolled A1C 8.2 8. Cor Pulmonale HISTORY OF PRESENT ILLNESS AND HOSPITAL COURSE: Delmer Ulrich is an 83-year-old male with past medical history of hyperlipidemia, GERD, depression, unprovoked pulmonary embolism approximately 3 years ago, status post 3 months of Coumadin, who complained of 2 months of increased shortness of breath. Please see H and P of Dr. Don Rodriguez for full details. On the date of admission, he felt dizzy, fell while going to bed, hit his head, felt worse with worsening shortness of breath and called EMS. He was noted to be tachycardic and given adenosine with EMS. In the emergency room, he was found to be hypotensive, his systolics in the 70s with long complex tachycardia. It was cardioverted and bolused with IV fluids. EKG showed inferior Q-waves and right bundle-branch block and he was admitted to the business account manager service. Echocardiogram demonstrated right ventricular strain with septal flattening and EF reduced at 45% to 50%, moderate tricuspid regurgitation, [id number] pulmonary hypertension, acute right heart strain and elevated D- dimer above 1050. He had a CT chest angiogram (of note, his initial creatinine was 1.61) and it demonstrated large pulmonary embolism involving the right main pulmonary artery and extending into all segments and subsegmental branches of the right lower and middle lobes, one of the segments of the right upper lobe was also involved. Evidence of cardiac strain. Small left pleural effusion with left basilar atelectasis. Bronchiectasis of the bilateral lungs. There was a fat stranding around the gallbladder which may represent acute cholecystitis and the gallbladder was partially visualized. He was given a half dose of TPA given his recent fall. Of note, his CT head on admission was read as no acute intracranial abnormality and chronic microvascular ischemic changes and then transitioned to heparin drip and then eventually Xarelto. His insurance would not cover his Xarelto in the [facility] and he was switched to Lovenox bridge to Coumadin. He had a venous Doppler ultrasound on 06/19/18, which showed right greater than left lower extremity DVT as described, more specifically extensive right lower extremity extending as far proximal as the common femoral vein, which is not occlusive of thrombus at the right femoral vein at the proximal end mid segments. Nonocclusive thrombus visualized at the distal femoral vein, popliteal vein, and paired posterior tibial calf veins. The right peroneal veins are not visualized and may be thrombosed. On the left side, the superficial thrombophlebitis at the confluence of left great saphenous vein with the left common femoral vein with extension of nonocclusive thrombus into the common femoral vein. Negative thrombus at the left profunda superficial femoral popliteal. Posterior tibial calf veins. Conspicuity of the left peroneal vein is incomplete limiting assessment. He was transferred out of the ICU and Dr. Ram consulted and recommended hypercoagulability workup including prothrombin gene mutation factor V Leiden, which would not be affected by current anticoagulation and also protein C, protein S, antithrombin III, and anticardiolipin antibodies, though assessment may be affected by current anticoagulation. He was recommended to follow up with Dr. Ram within 3 months. The rest of his course was uneventful except for his acute hypoxic respiratory failure for which he is clearly needing supplemental oxygen for safe discharge, specifically on room air at rest, he was satting 88%, while on 2 L was 93% with ambulation on room air, he was 84% with 3 L of walking he was 91%. Unfortunately, [facility] [place] explicitly is denying that this would be a covered given this is an acute event and in their experience his insurance company will not reimburse them despite clear acute medical necessity. This matter is being referred to Judith Barber our Director of Clinical Resources to investigate further. The patient elected to pay for the oxygen out of pocket while this can be further resolved rather than spend further days needlessly hospitalized. He is returning to his [facility]. Additional workup included a TSH, which was within normal limits at 0.71, free T4, which shows high at 1.25. Total T3 was low at 56. Also of note, his hemoglobin A1c is noted to be 8.2%. Patient has managed his long standing diabetes most recently with diet and thinks his A1C was recently very good. He has chosen to defer further intervention until discussing with PCP Dr. Burroughs. His INR on 06/24 was 1.34, having received the first dose of 5mg Coumadin on 06/23. DISCHARGE MEDICATIONS: Include: 1. Amlodipine 5 mg daily (new). 2. Aspirin 81 mg daily (new, aspirin is reduced from former 324 mg). 3. Omeprazole 20 mg p.o. daily. 4. Coumadin 5mg po daily (new) 5. Flomax 0.8 mg p.o. q.a.m. 6. Finasteride 5 mg p.o. daily. 7. Theragran 1 tab p.o. daily. 8. Olopatadine 0.2% one drop both eyes q.a.m. 9. Zoloft 12.5 mg p.o. daily. 10. Lovenox 100mg q12h (given 12 doses) until INR between 2-3 for 24 hours then stop FOLLOWUP: The patient should follow up with Dr. Vasile Ram within [address] Sincere Burroughs within 3 days. He was recommended to get an INR check on Tuesday 06/26 at the latest. He should get this at his PCP office (his preference) but as back up plan an order to the outpatient lab was also submitted. Of note, there is hypercoagulability labs sent pending including antithrombin III activity level, cardiolipin IgG and IgM, factor V Leiden mutation, lupus anticoagulant, prothrombin 20907 mutation, protein C activity, and protein S activity, and some of these may need to be interpreted with caution given the fact that he was on first heparin drip and then Xarelto at that time. TIME SPENT ON DISCHARGE: More than 45 mintues, which was spent at bedside educating and evaluating the patient. [id number]/[facility] #: [id number] MTDD
[2018-06-24 05:52] LABS: Hematocrit 42 % (42-52); Hemoglobin 14.4 g/dl (14.0-18.0); Mean Corpuscular HGB Conc 34 g/dl (31-36); Mean Corpuscular Hemoglobin 34 pg (27-31); Mean Corpuscular Volume 98 fL (80-94); Mean Platelet Volume 7.2 fL (7.4-10.4); Platelet Count 182 10^3/ul (150-450); Red Blood Count 4.27 10^6/ul (4.00-5.40); Red Cell Distribution Width 13 % (10.5-15); White Blood Count 6.3 10^3/ul (3.5-10.8)
[2018-06-24 05:58] LABS: INR 1.34 (0.77-1.02)
[2018-06-24 06:12] LABS: EGFR Non-African American 64.1 (>60)
[2018-06-24] MEDS: Insulin LISPRO* 1 UNITS UNIT SUBCUT SCH ×2 (08:03→12:26)
[2018-06-24] MEDS: Tamsulosin CAP* 0.4 MG PO SCH (08:39)
[2018-06-24] MEDS: Aspirin 81 mg CHEW TAB* 81 MG TAB.CHEW PO SCH (08:40)
[2018-06-24] MEDS: Enoxaparin(*) 100 MG/ML SYR SUBCUT SCH (08:40)
[2018-06-24] MEDS: Omeprazole CAP* 20 MG PO SCH (08:40)
[2018-06-24] MEDS: amLODIPine TAB* 5 MG PO SCH (08:40)
[2018-06-24 11:47] VITALS: BP 128/70
[2018-06-25 17:20] LABS: Prothrombin 20210 Mutation Negative (Negative)
--- NOTE | 2018-06-26 14:28 | CONS ---
CARDIOLOGY CONSULTATION: DATE OF CONSULT: 06/18/18 INDICATION FOR CONSULTATION: Ventricular tachycardia. HISTORY OF PRESENT ILLNESS: The patient is an 83-year-old gentleman who came to the emergency room a fter having a syncopal episode at home. The patient states that he was at home, he got up to go to t he kitchen and ended up having a syncopal episode at home, this was around 0300 hours. The patient s tates that he fell and hit his head on the bed. The patient did feel shortness of breath. Ultimatel y, he called the ambulance. On arrival of the ambulance, the patient was tachycardic with a wide com plex tachycardia, perhaps ventricular tachycardia, but perhaps atrial fibrillation with aberrancy. T he patient was given adenosine with no significant improvement. On arrival to the emergency room, he was hypotensive at 70 mmHg, systolic blood pressure and had a wide complex EKG. At that time, the d ecision was made to have the patient converted, was cardioverted to normal sinus rhythm with a right bundle branch block. He was give boluses of IV fluid with improvement with of blood pressure. On my arrival to the emergency room, the patient was awake and alert, he was able to answer questions. He was feeling a little short of breath. He did not have any chest pain. I did a quick echocardiogram in the emergency room. I did see that his LV function was basically normal. His left ventricle was somewhat underfilled. There was no obvious focal wall motion abnormalities. There was no pericardi al effusion. There was no obvious mitral regurgitation. Ultimately, the patient was evaluated in the emergency room and was found to have a history of venous thromboembolic events. He underwent a CAT scan in the emergency room, which showed a large right-si ded pulmonary embolism. PAST MEDICAL HISTORY: Significant for gastroesophageal reflux disease, hypertension, depression, thr omboembolic disease. PAST SURGICAL HISTORY: None. OUTPATIENT MEDICATIONS: 1. Omeprazole 20 mg a day. 2. Flomax 0.8 mg a day. 3. Aspirin 325 a day. 4. Finasteride 5 mg a day. 5. Multivitamin a day. 6. Multiple eye drops. 7. Zoloft 12.5 mg a day. ALLERGIES: No known drug allergies. FAMILY HISTORY: There is a family history of both in his father and his sister with pulmonary emboli , also history of diabetes. SOCIAL HISTORY: The patient was previously a heavy drinker. He decreases drinking about a month ago . He smokes a pack of cigarettes a day. He denies any recreational drug use. REVIEW OF SYSTEMS: Positive for shortness of breath. Negative for fevers and chills. Negative for changes in weight. Negative for changes in bowel or bladder habit. PHYSICAL EXAM: Height is 6 feet 2 inches, weight 231 pounds. Vital signs in the emergency room, kai rt rate is 75, blood pressure 115/74, respiratory rate is 17, oxygen saturation 96% on 2 L. Sclerae anicteric. Oropharynx is pink without erythema. Carotids are 2+ without bruits. JVD is normal. Th yroid is normal. Cardiac Exam: S1, S2, without any murmurs, rubs, or gallops. Lungs are clear to au scultation bilaterally. There is no dullness to percussion. Abdomen is soft, nontender, nondistende d with normoactive bowel sounds. Extremities show no edema. He has 2+ pulses throughout. The patien t does have trauma on his head from his fall against the bed. DIAGNOSTIC STUDIES/LAB DATA: White count 12.6, hemoglobin 14, hematocrit 45, platelet count 152. Ch emistries within normal limits. BUN 24, creatinine 1.3. Initial troponin was 0.08, peak troponin lev el of 0.68. AST and ALT are normal. BNP is normal at 93. Total cholesterol 160, LDL cholesterol 92. IMPRESSION: This is an 83-year-old gentleman who is admitted to the hospital after being summoned by the ambulance because of a syncopal episode and he also had significant shortness of breath. His in itial rhythm was wide complex tachycardia. At that time, he was also hypotensive. The decision was t o have the patient get cardioverted in the emergency room. He was cardioverted to normal sinus rhyth m with a right bundle branch block. A quick echocardiogram in the emergency room showed normal LV fu nction, although the left ventricle was underfilled. No pericardial effusion. No significant mitral regurgitation. The patient was admitted to the intensive care unit. He was found to have a large pulmonary embolism , for which he was treated appropriately. An echocardiogram done next day demonstrated mildly reduce d LV systolic function with septal flattening consistent with right ventricular overload. His ejecti on fraction was 45% to 50%. No focal wall motion abnormalities. No significant valvular abnormalitie s. He did have moderate tricuspid regurgitation with moderate pulmonary hypertension. The patient will continue therapy for his pulmonary embolism. At this point, no cardiac evaluation i s necessary. The patient should follow up with the skein mercerizing machine operator as an outpatient. [id number]/[facility] #: [id number]
== END 2018-06-24 14:00 | disposition home or self-care (01) | DRG 175 ==
LOC: ED 16:44 → ICU 19:27 → MEDTELE 06-20 13:21
PROVIDERS: ADMIT Internal Medicine Critical Care Medicine; ATTEND Internal Medicine
DX: I26.09 Other pulmonary embolism with acute cor pulmonale (principal); J96.01 Acute respiratory failure with hypoxia; I47.2 Ventricular tachycardia; E87.2 Acidosis; J98.11 Atelectasis; I82.413 Acute embolism and thrombosis of femoral vein, bilateral; N17.9 Acute kidney failure, unspecified; E78.5 Hyperlipidemia, unspecified; K21.9 Gastro-esophageal reflux disease without esophagitis; F32.9 Major depressive disorder, single episode, unspecified; I95.9 Hypotension, unspecified; N28.9 Disorder of kidney and ureter, unspecified; S09.90XA Unspecified injury of head, initial encounter; W19.XXXA Unspecified fall, initial encounter; I45.10 Unspecified right bundle-branch block; E11.65 Type 2 diabetes mellitus with hyperglycemia; M48.00 Spinal stenosis, site unspecified; E11.36 Type 2 diabetes mellitus with diabetic cataract; J44.9 Chronic obstructive pulmonary disease, unspecified; I48.91 Unspecified atrial fibrillation; I34.0 Nonrheumatic mitral (valve) insufficiency; I27.20 Pulmonary hypertension, unspecified; I80.3 Phlebitis and thrombophlebitis of lower extremities, unspecified; Z83.3 Family history of diabetes mellitus; Z72.89 Other problems related to lifestyle; Y92.9 Unspecified place or not applicable; Z87.01 Personal history of pneumonia (recurrent); Z79.01 Long term (current) use of anticoagulants; Z79.82 Long term (current) use of aspirin
CPT/HCPCS: 36415; 36600; 70450; 71045; 71275; 80048; 80053; 80061; 81003; 81015; 81240; 81241; 82550; 82565; 82803; 82947; 83036; 83605; 83735; 83880; 84100; 84145; 84439; 84443; 84479; 84484; 84520; 85025; 85027; 85300; 85303; 85306; 85379; 85384; 85610; 85613; 85730; 86147; 87077; 87086; 87186; 87641; 93005; 93306; 93970; 99285; A9270-GY; J0456; J0696; J1650; J2997; J3010; J3475; J3490; Q9967

== ENCOUNTER 2019-07-20 13:50 | Inpatient (IN) | payer MEDICARE ==
--- NOTE | 2019-07-20 14:47 | ED ---
GI/ HPI - HPI Summary HPI Summary: This pt is an 84 y/o male [facility] c/o bilateral flank pain. Pt reports his pain began last night while he was watching TV in bed. He notes he had a hard time sleeping secondary to pain. He states his pain continued today and decided to come to the ED. Pt reports he is a little SOB. Denies chest pain , abd pain, vomiting, dysuria, hematuria, pain in testicles. Pt reports constipation for which he is taking stool softeners. Pt states he has had this pain in the past on the right side but states it does not bother him unless he gets out of bed or into bed. He reports hx of kidney stones. Denies hx of UTI. PMHx: PE 1 year ago, HTN, DM, prostate issues. Pt is anticoagulated on Eliquis. Pt has only taken his Eliquis today. Daughter states patient was prescribed to use oxygen at night after his PE. Pt is a former smoker. Denies drug or alcohol use. NKDA. Medications reviewed. Allergies noted. - History of Current Complaint Chief Complaint: EDFlankPain Time Seen by Provider: 07/20/19 14:41 Stated Complaint: KIDNEY PAIN PER PT DAUGHTER Hx Obtained From: Patient, Family/Center Director Lead Teacher - Daughter Onset/Duration: Started Hours Ago, Still Present Timing: Lasting Hours Current Severity: Mild Pain Intensity: 1 Location of Pain: Flank - bilateral Associated Signs and Symptoms: Positive: Constipation, Flank Pain - bilateral, Other: - POSITIVE: SOB. Negative: Vomiting, Fever, Hematuria, Dysuria, Abdominal Pain, Chest Pain Aggravating Factor(s): Nothing Alleviating Factor(s): Nothing - Additional Pertinent History Primary Care Physician: ANIKA - Allergy/Home Medications Allergies/Adverse Reactions: Allergies Allergy/AdvReac Type Severity Reaction Status Date / Time No Known Allergies Allergy Verified 07/20/19 13:58 Home Medications: Home Medications Apixaban* [Eliquis*] 2.5 mg PO BID 07/20/19 [History Confirmed 07/20/19] Oxygen At Night 07/20/19 [History] PMH/Surg Hx/FS Hx/Imm Hx Endocrine/Hematology History: Reports: Hx Anticoagulant Therapy - "years ago"- warfarin, Hx Diabetes - type 2 Denies: Hx Anemia, Hx Unexplained Bleeding Cardiovascular History: Reports: Hx Deep Vein Thrombosis, Hx Hypercholesterolemia, Hx Hypertension Denies: Hx Aneurysm, Hx Angina, Hx Angioplasty, Hx Auto Implanted Cardiovert Defib, Hx Cardiac Arrest, Hx Cardiomegaly, Hx Congenital Heart Disease, Hx Congestive Heart Failure, Hx Coronary Artery Disease, Hx Embolism, Hx Hypotension, Hx Pacemaker/ICD, Hx Peripheral Vascular Disease, Hx Rheumatic Fever, Hx Syncope, Hx Valvular Heart Disease, Other Cardiovascular Problems/ Disorders Respiratory History: Reports: Hx Pulmonary Embolism, Hx Sleep Apnea - does not wear cpap Denies: Hx Chronic Obstructive Pulmonary Disease (COPD), Other Respiratory Problems/Disorders GI History: Reports: Hx Gastroesophageal Reflux Disease Denies: Hx Cirrhosis, Hx Crohn's Disease, Hx Diverticulosis, Hx Gall Bladder Disease, Hx Gastrointestinal Bleed, Hx Hiatal Hernia, Hx Irritable Bowel, Hx Jaundice, Hx Obstructive Bowel, Hx Ileostomy, Hx Pyloric Stenosis, Hx Ulcer, Other GI Disorders Musculoskeletal History: Reports: Other Musculoskeletal History - spinal stenosis Sensory History: Reports: Hx Cataracts - jia, Hx Contacts or Glasses - glasses Denies: Hx Hearing Aid - left Opthamlomology History: Reports: Hx Cataracts - jia, Hx Contacts or Glasses - glasses Neurological History: Denies: Other Neuro Impairments/Disorders - Surgical History Surgical History: Yes Surgery Procedure, Year, and Place: appendectomy. tonsilectomy. fractured leg Hx Anesthesia Reactions: No Infectious Disease History: No Infectious Disease History: Denies: Hx Clostridium Difficile, Hx Hepatitis, Hx Human Immunodeficiency Virus (HIV), Hx of Known/Suspected MRSA, Hx Shingles, Hx Tuberculosis, History Other Infectious Disease, Traveled Outside the [place] in Last 30 Days - Family History Known Family History: Negative: Cardiac Disease, Blood Disorder - Social History Alcohol Use: Daily Alcohol Amount: 10 oz per day Substance Use Type: Reports: None Smoking Status (MU): Never Smoked Tobacco Type: Cigarettes Have You Smoked in the Last Year: Yes Review of Systems Positive: Fever Negative: Chest Pain Positive: Shortness Of Breath Gastrointestinal: Other - POSITIVE: constipation Negative: Abdominal Pain, Vomiting Positive: flank pain - bilateral. Negative: dysuria, hematuria, pain All Other Systems Reviewed And Are Negative: Yes Physical Exam - Summary Physical Exam Summary: Constitutional: Well-developed, Well-nourished, Alert. Patient is saturating at 92% on room air. Skin: Warm, Dry HENT: Normocephalic; Atraumatic Eyes: Conjunctiva normal Neck: Musculoskeletal ROM normal neck. (-) JVD, (-) Stridor, (-) Tracheal deviation Cardio: Rhythm regular, rate is tachycardic between 115-120 bpm, Heart sounds normal; Intact distal pulses; The pedal pulses are 2+ and symmetric. Radial pulses are 2+ and symmetric. (-) Murmur Pulmonary/Chest wall: Patient is saturating at 92% on room air. (-) Wheezes, (- ) Rales Abd: Soft, (-) tenderness, (-) Distension, (-) Guarding, (-) Rebound Musculoskeletal: (-) Edema. Tenderness in the superior right iliac crest. Lymph: (-) Cervical adenopathy Neuro: Alert, Oriented x3 Psych: Mood and affect Normal Other: Bedside ultrasound shows no obvious AAA. Triage Information Reviewed: Yes Vital Signs On Initial Exam: Initial Vitals Temp Pulse Resp BP Pulse Ox 100.5 F 133 20 134/84 93 07/20/19 13:53 07/20/19 13:53 07/20/19 13:53 07/20/19 13:53 07/20/19 13:53 Vital Signs Reviewed: Yes Procedures - Sedation Patient Received Moderate/Deep Sedation with Procedure: No Diagnostics - Vital Signs Vital Signs Temp Pulse Resp BP Pulse Ox 07/20/19 13:53 100.5 F 133 20 134/84 93 - Laboratory Result Diagrams: 07/20/19 15:18 07/20/19 15:18 Lab Statement: Any lab studies that have been ordered have been reviewed, and results considered in the medical decision making process. - CT Abdomen/Pelvis CT CT Interpretation Completed By: Radiologist Summary of CT Findings: IMPRESSION: 7 mm calculus in the left proximal ureter with left hydronephrosis. Calculi is noted in the lower pole of the left kidney. Perinephric infiltration of fat is noted. Chronic pulmonary changes are noted in the left lung base. Dr. Baledras has reviewed this report. - EKG 15:03 Cardiac Rate: Tachycardia - at 114 bpm EKG Rhythm: Sinus Tachycardia Summary of EKG Findings: EKG at 1503 shows sinus tachycardia at a rate of 114 bpm. RBBB. No obvious ischemic changes. GIGU Course/Dx - Diagnoses Provider Diagnoses: Obstructive uropathy, Left renal stone, Acute kidney injury, Tachycardia, Hyperglycemia - Physician Notifications Discussed Care Of Patient With: Chance Champion Time Discussed With Above Provider: 16:17 Instructed by Provider To: Other - Discussed with Dr. Champion, urologist, who recommends admission. [16:24] Discussed Dr. Quevedo, hospitalist, who accepted the pt for admission. Discharge ED - Sign-Out/Discharge Documenting (check all that apply): Patient Departure - Admit to [facility] - Discharge Plan Condition: Stable Disposition: ADMITTED TO [facility] Referrals: Sincere Burroughs MD [Primary Care Provider] - - Attestation Statements Document Initiated by Scribe: Yes Documenting Scribe: Bailey Grace Provider For Whom Scribe is Documenting (Include Credential): Addi Balderas MD Scribe Attestation: Bailey Reese, scribed for Addi Balderas MD on 07/20/19 at 1624. Status of Scribe Document: Ready
[2019-07-20] MEDS ORDERED: NS 0.9% 1000 ML** 1,000 ML IV ONE ×2 (14:55→15:58)
[2019-07-20] MEDS ORDERED: Morphine 4 MG/ML VIAL (1 ml) 4 MG/ML VIAL IV ONE (14:55)
[2019-07-20 15:12] LABS: Urine Appearance Clear; Urine Bilirubin Negative (Negative); Urine Blood 1+ (Negative); Urine Color Yellow; Urine Glucose 3+(>=500 mg/dL) (Negative); Urine Ketones Negative (Negative); Urine Nitrite Negative (Negative); Urine Protein Negative (Negative); Urine Urobilinogen Negative (Negative)
[2019-07-20 15:15] LABS: Urine Bacteria Absent (Absent); Urine Red Blood Cell 2+(6-10/hpf) (Absent); Urine Squamous Epithelial Cell Present (Absent); Urine White Blood Cell 3+(>20/hpf) (Absent)
[2019-07-20 15:28] LABS: ABS Basophils 0.1 10^3/ul (0-0.2); ABS Lymphocytes 0.6 10^3/ul (1.0-4.8); ABS Monocytes 0.8 10^3/ul (0-0.8); ABS Neutrophils 13.2 10^3/ul (1.5-7.7); Hematocrit 43 % (42-52); Hemoglobin 14.6 g/dL (14.0-18.0); Lymphocyte % 3.9 %; Mean Corpuscular HGB Conc 34 g/dL (31-36); Mean Corpuscular Hemoglobin 32 pg (27-31); Mean Corpuscular Volume 95 fL (80-94); Mean Platelet Volume 7.1 fL (7.4-10.4); Platelet Count 200 10^3/uL (150-450); Red Blood Count 4.53 10^6 /uL (4.18-5.48); Red Cell Distribution Width 13 % (10-15); White Blood Count 14.8 10^3/uL (3.5-10.8)
--- OUTSIDE RECORDS SUMMARY | 2019-07-20 15:30 | XMS REPORT | Continuity of Care Document ---
:1935 External Reference #:[id number] Author Name Kiel Talbert, OD Address [address] [place] [address] Care Team Providers Name Role Phone Trav Esqueda MD Care Team Information Fan Blade Truer [phone] [facility] Care Team Information Fan Blade Truer Problems Active Problems Provider Date Type 2 diabetes mellitus Kiel Talbert, OD Onset: 12/06/2018 Social History Type Date Description Comments Sex Unknown ETOH Use Drinks 1 Alcoholic Beverage Per Day Tobacco Use Start: Unknown End: Unknown Patient is a former smoker Smoking Status Reviewed: 06/18/19 Patient is a former smoker Allergies, Adverse Reactions, Alerts Description No Known Drug Allergies Medications Active Medications SIG Qnty Indications Ordering Provider Date Omeprazole Unknown 10mg Capsules DR Garza Unknown 0.4mg Capsules Bupropion HCL Unknown 75mg Tablets Finasteride Take 1 Tablet By Unknown 5mg Tablets Mouth Every Day as Directed Metformin HCL Unknown 500mg Tablets Pravastatin Sodium Unknown 20mg Tablets Immunizations Description No Information Available Vital Signs Date Vital Result Comment 05/03/2018 8:16am Intraocular Pressure Right Eye 16 mmHg Intraocular Pressure Left Eye 16 mmHg 04/25/2018 8:14am Intraocular Pressure Right Eye 14 mmHg Intraocular Pressure Left Eye 15 mmHg Results Description No Information Available Procedures Description No Information Available Medical Devices Description No Information Available Encounters Type Date Location Provider Dx Diagnosis Office Visit 06/18/2019 Main Office Kiel Talbert, OD 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, 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, left eye Office Visit 03/15/2019 2:15p Main Office Kiel Talbert, H43.822 Vitreomacular OD adhesion, left eye 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, right eye Office Visit 02/07/2019 2:30p Main Office Kiel Talbert, H31.091 Other chorioretinal OD scars, 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, left eye H52.4 Presbyopia Assessments Date Code Description Provider 06/18/2019 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, right eye Kiel Talbert, OD 06/18/2019 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, left eye Kiel Talbert, OD 03/15/2019 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, left eye Kiel Talbert, OD 03/15/2019 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, right eye Kiel Talbert, OD 02/07/2019 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
[2019-07-20 15:45] LABS: Albumin 3.6 g/dL (3.2-5.2); Albumin/Globulin Ratio 1.4 (1-3); BUN/Creatinine Ratio 13.7 (8-20); Calcium 8.7 mg/dL (8.6-10.3); EGFR African American 47.5 (>60); EGFR Non-African American 39.2 (>60); Globulin 2.5 g/dL (2-4); Total Bilirubin 0.7 mg/dL (0.2-1.0); Total Protein 6.1 g/dL (6.4-8.9)
[2019-07-20 15:47] LABS: Troponin I 0.01 ng/mL (<0.03)
[2019-07-20 15:49] LABS: Potassium 5.3 mmol/L (3.5-5.0)
[2019-07-20] MEDS ORDERED: Dextrose 50% VIAL 50 ml IV PUSH PRN ×2 (16:36→16:38)
[2019-07-20] MEDS ORDERED: Insulin LISPRO* 1 UNITS UNIT SUBCUT ONE (16:36)
[2019-07-20] MEDS ORDERED: cefTRIAXone(*) 2 GM in NS 0.9% 100 ML* 100 ML IVPB ONE (16:38)
[2019-07-20] MEDS ORDERED: Iohexol 180 (CONTRAST) 10 ML SDV IV ONE (16:51)
[2019-07-20] MEDS ORDERED: cefTRIAXone(*) 1 GM in NS 0.9% 50 ML* 50 ML IVPB SCH (17:00)
[2019-07-20] MEDS ORDERED: NS 0.9% 1000 ML** 1,000 ML IV SCH (17:15)
[2019-07-20] MEDS ORDERED: Acetaminophen TAB* 325 MG PO PRN (17:16)
[2019-07-20] MEDS ORDERED: Morphine INJ* 2 MG/ML 1 ML SYRINGE (TWO MG - NEW SYRINGE VERSION) IV PRN (17:16)
[2019-07-20] MEDS ORDERED: Buffered Lidocaine 1% SYRIN* 1 ML/SYRINGE INTRADERM ONE ×2 (17:33)
[2019-07-20] MEDS ORDERED: Ondansetron INJ* 2 MG/ML VIAL IV PRN ×2 (17:34→19:46)
[2019-07-20] MEDS ORDERED: Levalbuterol 0.63MG/3ML NEB* UNIT OF USE INH PRN ×2 (17:34→19:46)
[2019-07-20] MEDS ORDERED: Naloxone* 0.4 MG/ML 1 ML VIAL IV PRN ×2 (17:34→19:48)
[2019-07-20] MEDS ORDERED: fentaNYL* 50 MCG/ML 2 ML VIAL (100 MCG VIAL) IV PRN ×2 (17:34→19:46)
[2019-07-20] MEDS ORDERED: KETAMINE HCL* 50 MG/ML 10 ML VIAL ONE (17:53)
[2019-07-20] MEDS ORDERED: Midazolam* 1 MG/ML 2 ML VIAL (2 MG) ONE (17:53)
[2019-07-20] MEDS ORDERED: fentaNYL* 50 MCG/ML 2 ML VIAL (100 MCG VIAL) ONE (17:53)
[2019-07-20] MEDS ORDERED: Lidocaine 2% PF * 5 ML VIAL ONE (17:55)
[2019-07-20] MEDS ORDERED: Propofol* 10 MG/ML 20 ML BTL ONE (17:56)
[2019-07-20] MEDS ORDERED: Lactated Ringers 1000 ML Bag* 1,000 ML IV SCH (18:00)
--- NOTE | 2019-07-20 18:10 | PN ---
Sepsis Event Evaluation Date of Evaluation: 07/20/19 Time of Evaluation: 17:40 Current Stage of Sepsis: Severe Sepsis Vital Signs - Last 12 Hours: Vital Signs - 12 hr Temp Pulse Resp BP Pulse Ox 07/20/19 17:22 98.6 F 108 16 143/74 94 07/20/19 17:00 105 24 95 07/20/19 16:40 106 39 134/75 95 07/20/19 16:11 109 129/74 94 07/20/19 16:00 113 93 07/20/19 15:40 108 146/80 93 07/20/19 15:25 114 149/83 93 07/20/19 15:21 18 07/20/19 15:00 110 92 07/20/19 14:41 123 94 07/20/19 14:40 151/84 07/20/19 13:53 100.5 F 133 20 134/84 93 Lactic Acid: 07/20/19 15:18 Lactic Acid 2.1 H* - Cardiopulmonary Exam Capillary Refill: Immediate Respiratory: Symmetrical Chest Expansion and Respiratory Effort Cardiovascular: NL Sounds; No Murmurs; No JVD, RRR - Peripheral Pulse Exam Radial Pulses: Bilateral Normal Pedal Pulses: Bilateral Normal Posterior Tibial Pulse: Bilateral Normal - Skin Exam Skin Exam: Normal Turgor - Nikki Coma Scale Best Eye Response: 4 - Spontaneous Best Motor Response: 6 - Obeys Commands Best Verbal Response: 5 - Oriented Coma Scale Total: 15 Assess/Plan/Problems-Billing Assessment:
--- NOTE | 2019-07-20 19:34 | HP ---
CC: Dr. Sincere Burroughs; Dr. Champion; Dr. Ram * HISTORY AND PHYSICAL: DATE OF ADMISSION: 07/20/19 PRIMARY CARE PROVIDER: Dr. Sincere Burroughs. CHIEF COMPLAINT: Right-sided flank pain. HISTORY OF PRESENT ILLNESS: Delmer Ulrich is an 84-year-old male who is rather poor historian and forgetful who stated that he presented to the hospital with complaints of flank pain. Initially, he told me that his right side has been bothering him for a year now. He also stated that more acutely so he developed left-sided flank pain over the past 12 hours and he was not able to sleep at night. He denies any problems with urination and denies any hematuria. He was evaluated in the ED. He was noted to have 7 mm obstructing left ureteral calculus. The patient stated that he has had problems with kidney stones in the past and he was under the care of Dr. Champion in the past, but he does not remember when. The patient is going to be placed on overnight observation with the diagnosis of hydronephrosis. PAST MEDICAL HISTORY: 1. History of 2 PEs, one was around 2015 or 2013 and another one massive PE in 2018 for which the patient received half dose tPA. At that point, he was also diagnosed with bilateral DVTs. 2. History of diabetes type 2, for which in 2018 the patient refused to be treated but stated that just recently he was placed on metformin. 3. History of depression. 4. History of right bundle branch block. 5. Dyslipidemia. 6. Gastroesophageal reflux disease. MEDICATIONS: Include: 1. Metformin 500 mg b.i.d. 2. Pravachol 20 mg at bedtime. 3. Oxygen at 2 L. 4. Amlodipine 5 mg daily. 5. Flomax 0.8 mg daily. 6. Omeprazole 20 mg daily. 7. Apixaban 2.5 mg b.i.d. 8. Finasteride 5 mg daily. 9. The patient is also on bupropion at home, but he does not remember the dose. ALLERGIES: No known drug allergies. FAMILY HISTORY: Positive for clots in most of the family members on his father' s side. Father suddenly of PE at the age of 58. One of the brothers of acute NV at 54, another brother of clot "in the brain" at 65. SOCIAL HISTORY: The patient has a history of 40-pack year smoking. He has not smoked for the past couple of years. He denies any drug use. He drinks alcohol rarely. He is a and his surrogate is his daughter, Keshia Hi. REVIEW OF SYSTEMS: Please see history of present illness. All the remaining 12 systems were reviewed with the patient and were otherwise negative. Please note that the patient is a very poor historian. PHYSICAL EXAMINATION GENERAL: The patient is a pleasant 84-year-old male who is in no acute distress. The patient is alert and oriented x3 but was again very poor historian and very poor recall. VITAL SIGNS: Blood pressure of 134/75, heart rate 106 and regular, respiratory rate 39, oxygen saturation 95% on 2 L of oxygen with nasal cannula, temperature of 100.5. HEENT: Head: Atraumatic, normocephalic. Eyes: Pupils are equal, reactive to light and accommodation. Oropharynx is clear. Mucosa dry. NECK: Supple. No JVD. No bruits bilaterally. RESPIRATORY: Clear to auscultation bilaterally. CARDIOVASCULAR: Regular rate and rhythm. Tachycardia. No murmur. ABDOMEN: Soft, nontender. Bowel sounds are present in all 4 quadrants. BACK: On evaluation of the back, the patient has mild right flank tenderness. EXTREMITIES: There is trace bilateral ankle edema. Pulses are 2+ bilaterally. No clubbing, cyanosis. NEURO EVALUATION: Speech clear. Cranial nerves grossly intact. Motor strength is 5/5 bilaterally. DIAGNOSTIC STUDIES/LAB DATA: White blood cell count of 14.8, hemoglobin of 14.6, hematocrit of 43, MCV of 95 and platelets of 200. INR of 1.34. Sodium of 139, potassium 5.3, chloride 90, carbon dioxide 22, BUN 23, creatinine 1.68. Liver function test unremarkable. Mild elevation of alkaline phosphatase at 123. The patient's lactic acid is 2.1. Troponin of 0.01. Glucose level 422. The patient's urinalysis positive for wbc's, rbc's, trace blood, trace esterase. CT of abdomen and pelvis performed without contrast show a 7 mm calculus in the left proximal ureter with left hydronephrosis. Calculi is also evident in the lower pole of the left kidney with perinephric infiltration of fat was noted. The patient's EKG showed sinus tachycardia with a heart rate of 114 beats per minute with the right bundle branch block compared with an EKG from 2018. The patient's right bundle branch block is chronic but tachycardia is new. ASSESSMENT AND PLAN: 1. At this point, the patient's left-sided hydronephrosis with the obstructive ureteral calculus. The urine suggestive of urinary tract infection and with lactic acid of 2.1 the patient is in severe sepsis. The patient is going to be admitted to the hospital initially for observation. Dr. Champion already was contacted by the ED provider is going to take the patient for the cystoscopy today. The patient's acute kidney injury is also likely due to obstructive renal calculi and hydronephrosis. 2. Diabetes. Metformin is going to be held. The patient is going to be placed on sliding scale. 3. Hyponatremia. Likely pseudohyponatremia due to high sugars. 4. History of pulmonary embolism. The patient currently is going to be placed on supplementation with oxygen. He is on Eliquis at home. He has history of 2 unprovoked pulmonary embolisms. I will hold his anticoagulation for tonight but restart it tomorrow at 2.5 mg b.i.d. 5.Tachycardia is likely related to the patient's sepsis. We will continue observing. 6. For depression, the patient stated that although he does not remember the dose of bupropion that he is taking, he is not interested in taking this medication anymore and that is going to be held. 7. Gastroesophageal reflux disease. Omeprazole is going to be continued. If fact it is going to be substituted with pantoprazole at [facility]. 8. For DVT prophylaxis, the patient is going to be continued on Eliquis as mentioned above. 9. The patient's code status is full. His surrogate is his daughter. TIME SPENT: Approximately 65 minutes was spent on admission of this patient, more than half that time was spent [id number] with the patient during the interview and physical exam. [id number]/[facility] #: [id number] LIVAN
[2019-07-20] MEDS ORDERED: Lidocaine 2% JELLY* 6 ML JELLY TOPICAL PRN (19:53)
--- NOTE | 2019-07-20 20:03 | PN ---
Progress Note - Progress Note Date of Service: 07/20/19 Note: Spoke with Dr Champion who stated that patient had a ureteral stent placed this evening. Patient's urine was cloudier than expected therefore a elder catheter was placed overnight, anticipate removing it in AM. Dr. Champion recommeds that the patient decrease his eliquis dose to daily until follow up with him outpatient for lithotripsy.
[2019-07-20] MEDS: NS 0.9% 1000 ML** 1,000 ML IV SCH (20:06)
[2019-07-20 21:32] LABS: ABS Basophils 0.1 10^3/ul (0-0.2); ABS Lymphocytes 1.1 10^3/ul (1.0-4.8); ABS Neutrophils 12.8 10^3/ul (1.5-7.7); Eosinophil % 0.2 %; Hematocrit 39 % (42-52); Hemoglobin 13.4 g/dL (14.0-18.0); Lymphocyte % 7.4 %; Mean Corpuscular HGB Conc 34 g/dL (31-36); Mean Corpuscular Hemoglobin 33 pg (27-31); Mean Corpuscular Volume 96 fL (80-94); Mean Platelet Volume 7.1 fL (7.4-10.4); Platelet Count 198 10^3/uL (150-450); Red Blood Count 4.11 10^6 /uL (4.18-5.48); Red Cell Distribution Width 13 % (10-15)
--- NOTE | 2019-07-20 21:46 | OP ---
CC: Dr. Burroughs; Dr. Chance Champion OPERATIVE REPORT: DATE OF OPERATION: 07/20/19 DATE OF : 37 SURGEON: Chance Champion MD ANESTHESIOLOGIST: Dr. Roberts. ANESTHESIA: Intravenous sedation. PRE-OP DIAGNOSES: 1. Obstructing calculus, left proximal ureter. 2. Left renal calculus. 3. Left hydronephrosis. POST-OP DIAGNOSES: 1. Obstructing calculus, left proximal ureter. 2. Left renal calculus. 3. Left hydronephrosis. OPERATIVE PROCEDURE: 1. Cystoscopy. 2. Left retrograde pyelogram. 3. Left ureteral calculus manipulation. 4. Left stent insertion. INDICATIONS: Delmer Ulrich III is an 84-year-old gentleman, who was evaluated for an obstructing calcu ana maría at the left ureteropelvic junction associated with elevated creatinine and is now being brought i n for urgent left stent insertion. In addition, he has a left renal calculus. He will require litho tripsy for these calculi once he is temporarily off his Eliquis in the near future. COMPLICATIONS: None. POSTOPERATIVE CONDITION: Stable. OPERATIVE FINDINGS: 1. Enlarged prostate, especially median lobe. 2. Left hydronephrosis. STENT USED: 6-Wallisian stent, left ureter. DESCRIPTION OF PROCEDURE: After induction of intravenous sedation, the patient was placed in dorsal lithotomy position. Sequential compression devices were in place and functioning. 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 Evaluation of the bladder was somewhat limited due to the fact that the proced ure was being done with intravenous sedation and the patient had a little bit of oozing from the medi an lobe because of his being on the Eliquis. Guidewire was introduced into the left ureter, retrogra de pyelogram revealed fullness of the left collecting system. An open-ended catheter was advanced un amy fluoroscopic monitoring to manipulate the calculus proximally and once the open-ended catheter wa s in the renal pelvis, there was significant drainage of cloudy urine from the left kidney. Urine was sent for culture and sensitivity and a 6-Wallisian stent was introduced and positioned under fluoroscop y with good proximal and distal positioning obtained. A Stack catheter was placed for temporary blad amy drainage. The patient tolerated the procedure satisfactorily and was transferred back to the [facility] area in stable condition. [id number]/[facility] #: [id number]
[2019-07-20 21:48] LABS: BUN/Creatinine Ratio 13.7 (8-20); Calcium 7.7 mg/dL (8.6-10.3); EGFR African American 52.9 (>60); EGFR Non-African American 43.7 (>60); Potassium 4.2 mmol/L (3.5-5.0)
[2019-07-20] MEDS: Insulin LISPRO* 1 UNITS UNIT SUBCUT SCH (22:07)
[2019-07-21] MEDS: NS 0.9% 1000 ML** 1,000 ML IV SCH ×3 (02:49→17:44)
[2019-07-21 03:48] LABS: ABS Basophils 0.1 10^3/ul (0-0.2); ABS Eosinophils 0.1 10^3/ul (0-0.6); ABS Monocytes 0.6 10^3/ul (0-0.8); ABS Neutrophils 10.9 10^3/ul (1.5-7.7); Eosinophil % 0.7 %; Hematocrit 37 % (42-52); Hemoglobin 12.9 g/dL (14.0-18.0); Lymphocyte % 8.1 %; Mean Corpuscular HGB Conc 35 g/dL (31-36); Mean Corpuscular Hemoglobin 32 pg (27-31); Mean Corpuscular Volume 94 fL (80-94); Mean Platelet Volume 7.1 fL (7.4-10.4); Platelet Count 187 10^3/uL (150-450); Red Blood Count 3.99 10^6 /uL (4.18-5.48); Red Cell Distribution Width 13 % (10-15); White Blood Count 12.7 10^3/uL (3.5-10.8)
[2019-07-21 04:05] LABS: BUN/Creatinine Ratio 13.8 (8-20); Calcium 7.5 mg/dL (8.6-10.3); EGFR African American 59.5 (>60); EGFR Non-African American 49.2 (>60); Potassium 4.1 mmol/L (3.5-5.0)
[2019-07-21] MEDS: Tamsulosin CAP* 0.4 MG PO SCH (08:53)
[2019-07-21] MEDS: Finasteride TAB* 5 MG PO SCH (08:53)
[2019-07-21] MEDS: Apixaban* 2.5 MG TAB PO SCH (08:53)
[2019-07-21] MEDS: Pantoprazole TAB * 40 MG TAB PO SCH (08:54)
[2019-07-21] MEDS: Insulin LISPRO* 1 UNITS UNIT SUBCUT SCH ×4 (08:54→20:57)
[2019-07-21] MEDS ORDERED: Sertraline* 25 MG TAB PO SCH (09:00)
[2019-07-21] MEDS ORDERED: Apixaban* 2.5 MG TAB PO SCH ×2 (09:00)
--- NOTE | 2019-07-21 14:04 | PN ---
Subjective Date of Service: 07/21/19 Interval History: Reports feeling a little better. Initially wanted to go home but got dizzy and oozy on walking and agreed to stay Objective Active Medications: Acetaminophen (Tylenol Tab*) 650 mg PO Q4H PRN PRN Reason: PAIN-MILD/TEMP >/= 100.4 Apixaban (Eliquis*) 2.5 mg PO DAILY [facility] Last Admin: 07/21/19 08:53 Dose: 2.5 mg Dextrose (Dextrose 50% Vial 50 Ml*) 25 ml IV PUSH .FOR FS < 60 - SS PRN PRN Reason: FS < 60 Finasteride (Proscar Tab*) 5 mg PO DAILY [facility] Last Admin: 07/21/19 08:53 Dose: 5 mg Ceftriaxone Sodium 1 gm/ (Sodium Chloride) 50 mls @ 100 mls/hr IVPB Q24H [facility] Sodium Chloride (Ns 0.9% 1000 Ml) 1,000 mls @ 150 mls/hr IV .PER RATE [facility] Last Admin: 07/21/19 10:55 Dose: 150 mls/hr Insulin Human Lispro (Humalog*) 0 units SUBCUT ACHS [facility]; Protocol Last Admin: 07/21/19 12:37 Dose: 4 unit Lidocaine HCl (Lidocaine 2% Jelly*) 1 applic TOPICAL Q6H PRN PRN Reason: .PAIN Morphine Sulfate (Morphine Inj (Syringe))*) 1 mg IV Q4H PRN PRN Reason: PAIN - SEVERE Pantoprazole Sodium (Protonix Tab*) 40 mg PO [facility] Last Admin: 07/21/19 08:54 Dose: 40 mg Tamsulosin HCl (Flomax Cap*) 0.8 mg PO [facility] Last Admin: 07/21/19 08:53 Dose: 0.8 mg Vital Signs - 8 hr 07/21/19 07/21/19 07/21/19 07:48 08:06 11:20 Temperature 98.7 F 99.4 F Pulse Rate 94 88 Respiratory 18 16 16 Rate Blood Pressure 113/51 94/40 (mmHg) O2 Sat by Pulse 90 94 Oximetry Oxygen Devices in Use Now: None Eyes: No Scleral Icterus Neck: NL Appearance and Movements; NL JVP Respiratory: Symmetrical Chest Expansion and Respiratory Effort Cardiovascular: NL Sounds; No Murmurs; No JVD Abdominal: NL Sounds; No Tenderness; No Distention Extremities: No Edema Neurological: Alert and Oriented x 3 Result Diagrams: 07/21/19 03:43 07/21/19 03:43 Assess/Plan/Problems-Billing Assessment: - Patient Problems (1) Hydronephrosis Current Visit: Yes Status: Acute Code(s): N13.30 - UNSPECIFIED HYDRONEPHROSIS SNOMED Code(s): 44178257 Comment: with UPJ obstruction obstructing calculus L prox ureter s/p L ureteral stent yesterday (2) Nephrolithiasis Current Visit: Yes Status: Acute Code(s): N20.0 - CALCULUS OF KIDNEY SNOMED Code(s): 32176675 Comment: s/p l ureteral stent likely lithotripsy with dr león as an outpt (3) UTI (urinary tract infection) Current Visit: Yes Status: Acute Comment: In the setting of obstruction leukocytosis improving continue ceftriaxone pending culture ( urine) blood culture IVF (4) History of pulmonary embolus (PE) Current Visit: Yes Status: Acute Code(s): Z86.711 - PERSONAL HISTORY OF PULMONARY EMBOLISM SNOMED Code(s): 678818045 Comment: Eliquis to once a day dosing per Dr León till lithotripsy PE was a year ago (5) Diabetes Current Visit: Yes Status: Acute Code(s): E11.9 - TYPE 2 DIABETES MELLITUS WITHOUT COMPLICATIONS SNOMED Code(s): 46591524 Comment: ISS metformin on hold (6) CHAYO (acute kidney injury) Current Visit: Yes Status: Acute Code(s): N17.9 - ACUTE KIDNEY FAILURE, UNSPECIFIED SNOMED Code(s): 59853523 Comment: sec to obstruction improving Status and Disposition: pt eval remove elder voiding trial continue antibiotics and await cx likely d/c in am if stable
[2019-07-21] MEDS ORDERED: cefTRIAXone(*) 1 GM in NS 0.9% 50 ML* 50 ML IVPB SCH (17:00)
[2019-07-22] MEDS: NS 0.9% 1000 ML** 1,000 ML IV SCH ×2 (00:25→06:58)
[2019-07-22 05:37] LABS: ABS Basophils 0.1 10^3/ul (0-0.2); ABS Eosinophils 0.3 10^3/ul (0-0.6); ABS Lymphocytes 1.7 10^3/ul (1.0-4.8); ABS Monocytes 0.5 10^3/ul (0-0.8); ABS Neutrophils 6.6 10^3/ul (1.5-7.7); Eosinophil % 2.8 %; Hematocrit 35 % (42-52); Lymphocyte % 18.4 %; Mean Corpuscular HGB Conc 34 g/dL (31-36); Mean Corpuscular Hemoglobin 32 pg (27-31); Mean Corpuscular Volume 95 fL (80-94); Mean Platelet Volume 7.1 fL (7.4-10.4); Platelet Count 186 10^3/uL (150-450); Red Blood Count 3.71 10^6 /uL (4.18-5.48); Red Cell Distribution Width 13 % (10-15); White Blood Count 9.1 10^3/uL (3.5-10.8)
[2019-07-22 05:54] LABS: BUN/Creatinine Ratio 12.9 (8-20); Calcium 7.2 mg/dL (8.6-10.3); EGFR African American 58.6 (>60); EGFR Non-African American 48.4 (>60)
[2019-07-22] MEDS: Insulin LISPRO* 1 UNITS UNIT SUBCUT SCH ×2 (07:35→12:43)
[2019-07-22] MEDS: Apixaban* 2.5 MG TAB PO SCH (08:45)
[2019-07-22] MEDS: Pantoprazole TAB * 40 MG TAB PO SCH (08:45)
[2019-07-22] MEDS: Tamsulosin CAP* 0.4 MG PO SCH (08:45)
[2019-07-22] MEDS: Finasteride TAB* 5 MG PO SCH (08:45)
[2019-07-22 11:25] VITALS: BP 113/51
--- NOTE | 2019-07-23 00:53 | DS ---
DISCHARGE SUMMARY: DATE OF ADMISSION: 07/20/19 DATE OF DISCHARGE: 07/22/19 PRIMARY DIAGNOSES: 1. Obstructing calculus, left proximal ureter. 2. Left renal calculus. 3. Left hydronephrosis. 4. Urinary tract infection in the setting of obstruction. SECONDARY DIAGNOSES: 1. History of pulmonary embolism and deep venous thrombosis in the past. 2. Diabetes. 3. Depression. 4. Right bundle-branch block. 5. Dyslipidemia. 6. Gastroesophageal reflux disease. HOSPITAL COURSE: An 84-year-old male, came into the hospital with complaints of severe flank pain. The patient also reported malaise and urine was suggestive of urinary tract infection with lactic acid of 2.1. The patient had a CT of the abdomen and pelvis done on 07/20/19 in the ER, which showed a 7 mm calculus in the left proximal ureter with left hydronephrosis. Calculi noted in the lower pole of the kidney, perinephric infiltration of fat. Urology was contacted and Dr. Champion took the patient for urgent left stent insertion. Please refer to Dr. Champoin's op note for full details. This was performed on 11/03. The patient had a cystoscopy, left retrograde pyelogram, left ureteral calculus manipulation and left stent insertion. The patient tolerated the procedure well. The patient had a little bit of hematuria postprocedure which resolved. Case was discussed by Delaney Weber with Dr. Champion. The patient had a Stack catheter placed, which was removed the next day. Dr. Champion recommended that the patient decrease his Eliquis dose to daily instead of twice a day until his followup for an outpatient lithotripsy. Hence, the patient is being discharged on once a day Eliquis currently. The patient's PEs were over a year ago. The patient's UA was consistent with urinary tract infection. Urine culture is currently pending and the patient to follow up on this as an outpatient. Blood cultures have remained negative. The patient was noted to have leukocytosis when initially came, which has improved with ceftriaxone. The patient will be discharged on Ceftin for 5 more days to complete course. The patient reports feeling significantly better today compared to admission. Vitals and labs noted to be stable at time of discharge. LABORATORY DATA: WBC 9.1, hemoglobin 12, hematocrit 35, platelets noted to be 186. Sodium 140, potassium 4, chloride 109, CO2 23, BUN 18, creatinine 1.4. Please note the patient also had CHAYO secondary to his obstruction. The patient' s creatinine had increased to 1.6, currently is trending down to 1.4. PHYSICAL EXAMINATION: Vitals: Temperature 98.3, pulse 68, respiratory rate 18 , blood pressure 128/66. HEENT: NCAT. Heart: S1 and S2 present. Regular rate and rhythm. Lungs: Clear to auscultation bilaterally. Abdomen: Soft. Extremities: No edema. Neuro: Alert. MEDICATION LIST AT TIME OF DISCHARGE: 1. Metformin 500 p.o. b.i.d. 2. Pravastatin 20 mg p.o. at bedtime. 3. Amlodipine 5 mg daily. 4. Tamsulosin 0.8 mg p.o. q.a.m. 5. Sertraline 12.5 mg p.o. daily. 6. Omeprazole 20 mg p.o. q.a.m. 7. Finasteride 5 mg p.o. daily. 8. Ceftin 500 mg p.o. b.i.d. for 5 days. 9. Eliquis 2.5 mg p.o. daily. FOLLOWUP: 1. The patient to follow up with Dr. Champion in a week and further plans for outpatient lithotripsy. 2. The patient to follow up with his PCP in a week. DISPOSITION: Discharged home. CONDITION: Stable. TIME SPENT: Total time spent on discharge is equal to 45 minutes. [id number]/CPS #: [id number] MTDD
== END 2019-07-22 14:59 | disposition home or self-care (01) | DRG 854 ==
LOC: ED 13:50 → SSU 19:45 → OBSVTOIN 07-21 10:57
PROVIDERS: ADMIT Internal Medicine; ATTEND Internal Medicine
PROC: BT1FZZZ Fluoroscopy of Left Kidney, Ureter and Bladder (ICD-10-PCS; 2019-07-20)
PROC: 0T778DZ Dilation of Left Ureter with Intraluminal Device, Via Natural or Artificial Opening Endoscopic (ICD-10-PCS; principal; 2019-07-20 18:00)
DX: A41.9 Sepsis, unspecified organism (principal); N13.6 Pyonephrosis; E87.1 Hypo-osmolality and hyponatremia; N17.9 Acute kidney failure, unspecified; E11.65 Type 2 diabetes mellitus with hyperglycemia; K21.9 Gastro-esophageal reflux disease without esophagitis; G47.30 Sleep apnea, unspecified; N40.0 Benign prostatic hyperplasia without lower urinary tract symptoms; M48.00 Spinal stenosis, site unspecified; N35.919 Unspecified urethral stricture, male, unspecified site; R65.20 Severe sepsis without septic shock; F32.9 Major depressive disorder, single episode, unspecified; E78.5 Hyperlipidemia, unspecified; I45.10 Unspecified right bundle-branch block; Z86.711 Personal history of pulmonary embolism; Z87.891 Personal history of nicotine dependence; Z79.84 Long term (current) use of oral hypoglycemic drugs; Z79.01 Long term (current) use of anticoagulants
CPT/HCPCS: 36415; 74018; 74176; 74420; 80048; 80053; 81003; 81015; 83605; 84484; 85025; 87040; 87077; 87086; 87186; 93005; 96374; 99284; A9270-GY; C1876; J0696; J2250; J2270; J2704; J3010

== ENCOUNTER 2022-04-04 13:10 | Inpatient (IN) ==
[2022-04-04 14:21] LABS: ABS Basophils 0.1 10^3/ul (0-0.2); ABS Eosinophils 0.1 10^3/ul (0-0.6); ABS Lymphocytes 1.6 10^3/ul (1.0-4.8); ABS Monocytes 0.4 10^3/ul (0-0.8); ABS Neutrophils 5.3 10^3/ul (1.5-7.7); Eosinophil % 1.6 %; Hematocrit 42 % (42-52); Hemoglobin 13.7 g/dL (14.0-18.0); Lymphocyte % 20.8 %; Mean Corpuscular HGB Conc 33 g/dL (31-36); Mean Corpuscular Hemoglobin 32 pg (27-31); Mean Corpuscular Volume 97 fL (80-94); Mean Platelet Volume 7.3 fL (7.4-10.4); Nucleated Red Blood Cells % 0.1; Platelet Count 156 10^3/uL (150-450); Red Blood Count 4.33 10^6 /uL (4.18-5.48); Red Cell Distribution Width 14 % (10-15); White Blood Count 7.5 10^3/uL (3.5-10.8)
[2022-04-04] MEDS ORDERED: Lactated Ringers 1000 ml BAG 1,000 ML IV ONE ×2 (15:13→20:21)
[2022-04-04 15:34] LABS: Albumin 3.6 g/dL (3.2-5.2); Albumin/Globulin Ratio 1.7 (1-3); Calcium 8.9 mg/dL (8.6-10.3); Globulin 2.1 g/dL (2-4); Potassium 3.9 mmol/L (3.5-5.0); Total Bilirubin 0.6 mg/dL (0.2-1.0); Total Protein 5.7 g/dL (6.4-8.9); eGFR CKD-EPI 39.9 (>60)
[2022-04-04 15:50] LABS: High Sensitivity Troponin 1 Hr 117 pg/mL (<20)
[2022-04-04 16:49] LABS: Urine Bacteria Absent (Absent); Urine Red Blood Cell 1+(3-5/hpf) (Absent); Urine White Blood Cell 3+(>20/hpf) (Absent)
[2022-04-04 16:51] LABS: Urine Appearance Clear; Urine Bilirubin Negative (Negative); Urine Blood Negative (Negative); Urine Color Yellow; Urine Glucose 1+ (250mg/dL) (Negative); Urine Ketones Trace (Negative); Urine Specific Gravity 1.025 (1.005-1.030)
[2022-04-04 16:52] LABS: Urine Nitrite Negative (Negative); Urine Protein 2+ (100 mg/dL) (Negative); Urine Urobilinogen 0.2 (Negative) (Negative)
[2022-04-04] MEDS ORDERED: cefTRIAXone 2 gm/50 mL D5W 2 GM/50 ML BAG IV ONE (16:58)
[2022-04-04] MEDS ORDERED: Dextrose 50% Syringe 50 ml 25 GM/50 ML SYRINGE IV PUSH PRN (20:06)
[2022-04-04] MEDS ORDERED: Gentamicin ADULT 500 MG in NS 0.9% 100 ml BAG 100 ML IVPB SCH (21:00)
[2022-04-05] MEDS: Mometasone/Formoter 100/5 MDI INH SCH ×3 (01:00→20:02)
[2022-04-05 06:33] LABS: ABS Basophils 0.1 10^3/ul (0-0.2); ABS Eosinophils 0.2 10^3/ul (0-0.6); ABS Lymphocytes 1.7 10^3/ul (1.0-4.8); ABS Monocytes 0.4 10^3/ul (0-0.8); ABS Neutrophils 3.8 10^3/ul (1.5-7.7); Eosinophil % 3.6 %; Hematocrit 39 % (42-52); Hemoglobin 13.2 g/dL (14.0-18.0); Lymphocyte % 27.2 %; Mean Corpuscular HGB Conc 34 g/dL (31-36); Mean Corpuscular Hemoglobin 32 pg (27-31); Mean Corpuscular Volume 95 fL (80-94); Mean Platelet Volume 7.5 fL (7.4-10.4); Nucleated Red Blood Cells % 0.1; Platelet Count 151 10^3/uL (150-450); Red Blood Count 4.14 10^6 /uL (4.18-5.48); Red Cell Distribution Width 14 % (10-15); White Blood Count 6.2 10^3/uL (3.5-10.8)
[2022-04-05 06:56] LABS: C Reactive Protein 6.59 mg/L (<8.01); Calcium 8.6 mg/dL (8.6-10.3); Potassium 3.7 mmol/L (3.5-5.0); eGFR CKD-EPI 50.7 (>60)
[2022-04-05 07:00] LABS: Magnesium 0.8 mg/dL (1.9-2.7)
[2022-04-05] MEDS ORDERED: Magnesium Sulf 4 GM/100 ML IV 4,000 MG/100 ML BAG IVPB ONE (07:23)
[2022-04-05] MEDS: Potassium Chlor 20 meq TAB.ER PO SCH ×2 (08:22→22:05)
[2022-04-05] MEDS ORDERED: DOXYcycline 100 MG in NS 0.9% 250 ml 250 ML IVPB ONE (10:00)
[2022-04-05 17:42] LABS: PSA Screening Total 1.071 ng/mL (0-4.000)
[2022-04-06 05:35] LABS: Hematocrit 44 % (42-52); Hemoglobin 14.3 g/dL (14.0-18.0); Mean Corpuscular HGB Conc 33 g/dL (31-36); Mean Corpuscular Hemoglobin 31 pg (27-31); Mean Corpuscular Volume 95 fL (80-94); Mean Platelet Volume 7.1 fL (7.4-10.4); Platelet Count 157 10^3/uL (150-450); Red Blood Count 4.58 10^6 /uL (4.18-5.48); Red Cell Distribution Width 14 % (10-15); White Blood Count 6.7 10^3/uL (3.5-10.8)
[2022-04-06 06:03] LABS: Calcium 8.9 mg/dL (8.6-10.3); Magnesium 1.4 mg/dL (1.9-2.7); Potassium 4.6 mmol/L (3.5-5.0); eGFR CKD-EPI 51.6 (>60)
[2022-04-06] MEDS ORDERED: Magnesium Sulf 4 GM/100 ML IV 4,000 MG/100 ML BAG IVPB ONE (06:06)
[2022-04-06] MEDS: Mometasone/Formoter 100/5 MDI INH SCH ×2 (07:41→19:33)
[2022-04-06] MEDS ORDERED: Influenza vaccine *QUAD* *2022-23* 0.5 ML SYRINGE IM ONE (09:00)
[2022-04-06] MEDS: Potassium Chlor 20 meq TAB.ER PO SCH ×2 (09:35→22:22)
[2022-04-06 16:47] LABS: HDL Cholesterol 28.9 mg/dL
[2022-04-06] MEDS ORDERED: Iodixanol (CONTRAST) 320 MG/ML 100 ML SDV IV ONE (18:10)
[2022-04-06] MEDS ORDERED: Lactated Ringers 1000 ml BAG 1,000 ML IV ONE (22:15)
[2022-04-07 06:38] LABS: Hematocrit 42 % (42-52); Hemoglobin 13.9 g/dL (14.0-18.0); Mean Corpuscular HGB Conc 33 g/dL (31-36); Mean Corpuscular Hemoglobin 32 pg (27-31); Mean Corpuscular Volume 96 fL (80-94); Mean Platelet Volume 7.3 fL (7.4-10.4); Platelet Count 170 10^3/uL (150-450); Red Blood Count 4.41 10^6 /uL (4.18-5.48); Red Cell Distribution Width 14 % (10-15); White Blood Count 6.2 10^3/uL (3.5-10.8)
[2022-04-07 06:53] LABS: Calcium 8.9 mg/dL (8.6-10.3); Magnesium 1.9 mg/dL (1.9-2.7); eGFR CKD-EPI 42.7 (>60)
[2022-04-07] MEDS ORDERED: Lactated Ringers 1000 ml BAG 1,000 ML IV SCH (08:00)
[2022-04-07] MEDS: Mometasone/Formoter 100/5 MDI INH SCH ×2 (11:08→20:53)
[2022-04-08 06:46] LABS: Hematocrit 41 % (42-52); Hemoglobin 13.7 g/dL (14.0-18.0); Mean Corpuscular HGB Conc 34 g/dL (31-36); Mean Corpuscular Hemoglobin 32 pg (27-31); Mean Corpuscular Volume 96 fL (80-94); Mean Platelet Volume 7.4 fL (7.4-10.4); Platelet Count 175 10^3/uL (150-450); Red Blood Count 4.27 10^6 /uL (4.18-5.48); Red Cell Distribution Width 14 % (10-15); White Blood Count 6.1 10^3/uL (3.5-10.8)
[2022-04-08 07:25] LABS: Magnesium 1.6 mg/dL (1.9-2.7); Potassium 4.9 mmol/L (3.5-5.0); eGFR CKD-EPI 39.9 (>60)
[2022-04-08] MEDS: Mometasone/Formoter 100/5 MDI INH SCH ×2 (08:15→20:31)
[2022-04-08] MEDS ORDERED: Magnesium Sulfate IV 3 GM in NS 0.9% 100 ml BAG 100 ML IVPB ONE (09:00)
[2022-04-08 13:15] VITALS: BP 130/65
[2022-04-08] MEDS ORDERED: Gadoteridol (CONTRAST) 279.3 MG/ML 10 ML IV ONE (13:28)
== END 2022-04-08 17:03 | DRG 689 ==
LOC: ED 13:10 → SUATTDRO 19:42 → EDHOLD 19:42 → MED 22:43 → MEDTELE 04-06 00:43
PROVIDERS: ADMIT Internal Medicine; ATTEND Internal Medicine

== ENCOUNTER 2022-05-16 10:34 | Inpatient (IN) ==
[2022-05-16 11:03] LABS: Hematocrit 44 % (42-52); Hemoglobin 14.5 g/dL (14.0-18.0); Mean Corpuscular HGB Conc 33 g/dL (31-36); Mean Corpuscular Hemoglobin 31 pg (27-31); Mean Corpuscular Volume 95 fL (80-94); Mean Platelet Volume 7.6 fL (7.4-10.4); Platelet Count 242 10^3/uL (150-450); Red Blood Count 4.62 10^6 /uL (4.18-5.48); Red Cell Distribution Width 13 % (10-15); White Blood Count 10.5 10^3/uL (3.5-10.8)
[2022-05-16 11:08] LABS: PCO2 Arterial 36 mmHg (35-45); PO2 Arterial 77 mmHg (80-100)
[2022-05-16] MEDS ORDERED: Ondansetron 4 mg VIAL 2 MG/ML 2 ml VIAL IV ONE ×2 (11:10→12:19)
[2022-05-16 11:21] LABS: Activated Partial Thrombo Time 33.6 seconds (26.0-38.0); INR 1.49 (0.89-1.11)
[2022-05-16 11:39] LABS: Albumin 2.6 g/dL (3.2-5.2); Albumin/Globulin Ratio 1.5 (1-3); C Reactive Protein 107.51 mg/L (<8.01); Calcium 7.1 mg/dL (8.6-10.3); Globulin 1.7 g/dL (2-4); Magnesium 1.6 mg/dL (1.9-2.7); Total Bilirubin 0.9 mg/dL (0.2-1.0); Total Protein 4.3 g/dL (6.4-8.9); eGFR CKD-EPI 19.5 (>60)
[2022-05-16] MEDS: Lactated Ringers 1000 ml BAG 1,000 ML IV ONE ×2 (11:42→11:48)
[2022-05-16 11:47] LABS: RBC Morphology Normal (Normal)
[2022-05-16 11:48] LABS: ABS Lymphocytes 0.7 10^3/ul (1.0-4.8); ABS Monocytes 0.4 10^3/ul (0-0.8); ABS Neutrophils 9.3 10^3/ul (1.5-7.7)
[2022-05-16 11:50] LABS: Potassium 5.6 mmol/L (3.5-5.0)
[2022-05-16] MEDS ORDERED: Heparin DRIP 25,000 UNITS BAG 25,000 UNITS/500 ML BAG IV SCH (12:15)
[2022-05-16] MEDS ORDERED: Piperacillin/Tazobac ADVAN 3.375 GM in NS 0.9% 100 ml BAG 100 ML IV ONE ×2 (12:25→13:37)
[2022-05-16 12:32] LABS: High Sensitivity Troponin 1 Hr 1169 pg/mL (<20)
[2022-05-16] MEDS ORDERED: Heparin 5000 UNITS/ML 1 mL VIAL IV SCH (13:00)
[2022-05-16] MEDS ORDERED: Pantoprazole VIAL 40 MG VIAL IV ONE (13:04)
[2022-05-16] MEDS ORDERED: Vancomycin 1,250 MG in NS 0.9% 250 ml 250 ML IVPB ONE (13:45)
[2022-05-16] MEDS ORDERED: Vancomycin per Pharmacy 1 EA NOTE FOLLOW UP PRN (13:45)
[2022-05-16 13:58] LABS: Hematocrit 40 % (42-52); Hemoglobin 13.5 g/dL (14.0-18.0); Mean Corpuscular HGB Conc 34 g/dL (31-36); Mean Corpuscular Hemoglobin 32 pg (27-31); Mean Corpuscular Volume 95 fL (80-94); Mean Platelet Volume 7.7 fL (7.4-10.4); Platelet Count 223 10^3/uL (150-450); Red Cell Distribution Width 13 % (10-15); White Blood Count 9.6 10^3/uL (3.5-10.8)
[2022-05-16] MEDS ORDERED: Heparin 5000 UNITS/ML 1 mL VIAL SUBCUT SCH (14:00)
[2022-05-16] MEDS ORDERED: Zosyn per Pharmacy NOTE FOLLOW UP SCH (14:00)
[2022-05-16 14:22] LABS: ABS Lymphocytes 0.8 10^3/ul (1.0-4.8); ABS Monocytes 0.4 10^3/ul (0-0.8); ABS Neutrophils 8.4 10^3/ul (1.5-7.7); Lymphocyte % 8.5 %
[2022-05-16] MEDS ORDERED: Vancomycin 1,250 MG IV x ONCE IVPB ONE (15:00)
[2022-05-16] MEDS ORDERED: Norepinephrine 16MCG/ML BAG NS 4,000 MCG/250 ML BAG IV SCH (15:00)
[2022-05-16] MEDS ORDERED: Pantoprazole 80 mg in NS BAG 80 MG/250 ML BAG IV SCH (16:00)
[2022-05-16] MEDS ORDERED: Norepinephrine 16MCG/ML BAGD5W 4,000 MCG/250 ML BAG IV SCH (16:00)
[2022-05-16 16:52] LABS: Hematocrit 43 % (42-52)
[2022-05-16] MEDS ORDERED: ZOSYN 3.375 GM Q12H per EXTENDED INFUSION IV SCH ×2 (17:00→17:30)
[2022-05-16 17:31] VITALS: BP 106/54
[2022-05-16] MEDS ORDERED: Morphine 2 MG/ML SYRINGE IV PRN (19:29)
[2022-05-16] MEDS ORDERED: LORazepam 2 mg VIAL 1 ml IV PUSH PRN (19:29)
[2022-05-16] MEDS ORDERED: Scopolamine 1 mg/72hr PATCH TRANSDERM SCH (20:00)
[2022-05-17] MEDS ORDERED: Vancomycin Random Level NOTE FOLLOW UP ONE (06:00)
== END 2022-05-16 20:22 | disposition expired | DRG 189 ==
LOC: ED 10:34 → EDHOLD 13:27 → ICU 15:58
PROVIDERS: ADMIT Internal Medicine; ATTEND Internal Medicine